=== PATIENT | male | born 1955 | race Caucasian/White ===

== ENCOUNTER 2020-03-08 17:37 | Emergency (ER) | payer OTHER, SELFPAY ==
--- NOTE | ~2020-03-08 | XR_ITS ---
EXAMINATION: XR chest 2V 03/08/2020 18:43 INDICATION: Dizziness, nausea PROCEDURE: 2 view chest COMPARISON: No prior studies for comparison. FINDINGS: The lungs are clear. The cardiomediastinal silhouette is within normal limits. There are no pleural effusions. There is no pneumothorax suspected. IMPRESSION: 1: NO ACUTE CARDIOPULMONARY DISEASE. Reviewed, dictated and finalized at location A.
[2020-03-08 18:11] VITALS: BP 153/83; PULSE 77; RESP 18; TEMP 36.4; O2SAT 97
--- NOTE | 2020-03-08 18:15 | ECG_ITS ---
Measurements Intervals [place] Rate: 65 P: 28 OR: 171 QRS: 12 QRSD: 100 T: 30 QT: 421 QTc: 440 Interpretive Statements SINUS RHYTHM INCOMPLETE RIGHT BUNDLE BRANCH BLOCK BORDERLINE ECG Electronically Signed On 03-09-2020 7:26:46 CDT by Darien Leone D.O.
[2020-03-08 18:32] LABS: Basophils Absolute Auto 0.1 K/mm3 (0.0-0.1); Basophils Percent Auto 0.6 % (0.2-1.2); Eosinophils Absolute Auto 0.2 K/mm3 (0-0.3); Eosinophils Percent Auto 2.3 % (0-4.4); Hematocrit 45.5 % (42.0-52.0); Hemoglobin 15.8 g/dL (14.0-18.0); Immature Granulocyte Absolute 0.04 K/mm3 (0.00-0.031); Immature Granulocyte Percent A 0.4 % (0-0.5); Lymphocytes Absolute Auto 1.48 K/mm3 (0.9-3.2); Lymphocytes Percent Auto 14.6 % (18.3-44.2); Mean Corpuscular HGB Conc 34.7 g/dl (32-36); Mean Corpuscular Hemoglobin 30.6 pg (26-34); Mean Corpuscular Volume 88.2 fl (80-100); Mean Platelet Volume 10.3 fl (7.4-10.4); Monocytes Absolute Auto 0.6 K/mm3 (0.1-0.6); Monocytes Percent Auto 6.1 % (2.6-8.5); Neutrophils Absolute Auto 7.7 K/mm3 (1.3-6.7); Platelet Count Result 219 k/mm3 (150-375); Red Blood Count 5.16 M/mm3 (4.6-6.20); Red Cell Distribution Width 12.4 % (11.5-14.5); White Blood Count 10.1 K/mm3 (4.5-10.0)
[2020-03-08 18:48] LABS: Alanine Aminotransferase 52 U/L (4-50); Albumin Level 4.2 g/dL (3.5-5.1); Alkaline Phosphatase 98 U/L (38-126); Anion Gap 9 mmol/L (8-16); Aspartate Amino Transferase 41 U/L (17-59); Bilirubin,Total 1.2 mg/dL (0.2-1.3); Blood Urea Nitrogen 25 mg/dL (9-20); Calcium 9.1 mg/dL (8.4-10.2); Carbon Dioxide 22 mmol/L (22-30); Chloride 108 mmol/L (98-107); Estimated Glomerular Filt Rate > 60; Glucose 133 mg/dL (75-110); Potassium 3.9 mmol/L (3.4-5.0); Sodium 139 mmol/L (137-145)
[2020-03-08 19:02] VITALS: BP 141/86; PULSE 67; RESP 14; O2SAT 98
[2020-03-08 19:14] LABS: Add Urine Microscopic? YES; Appearance Urine Clear (Clear); Bilirubin Urine 1+ (Negative); Blood Urine Negative (Negative); Color Urine Amber (Yellow); Glucose Urine UA Negative (Negative); Ketones Urine 1+ mg/dL (Negative); Leukocyte Esterase Ur Negative LEU/UL (Negative); Mucus Urine Moderate /lpf; Nitrate Urine Negative (Negative); Protein Urine 1+ mg/dL (Negative); RBC Urine 0-2 /hpf (0-2); Squamous Epithelial Cell Urine Rare /hpf (Few); WBC Urine 0-3 /hpf
[2020-03-08 19:38] LABS: Specific Grav Ur 1.038 (1.001-1.035)
[2020-03-08 19:45] VITALS: BP 135/69; PULSE 64; RESP 16; O2SAT 95
--- NOTE | 2020-03-08 20:29 | ED.DIZZY ---
HPI - Dizziness General Chief Complaint: Dizziness Stated Complaint: dizzy, nausea Time Seen by Provider: 03/08/20 18:34 Source: patient Mode of arrival: ambulatory Limitations: no limitations History of Present Illness HPI Narrative: 64-year-old with no major medical problems here with a sudden onset of dizziness. Patient states that he had a pretty active day all morning got back home started making sandwich for himself and when he turned his head he felt extremely dizzy associated with some nausea however by the time he came to the ER his symptoms have much improved. He denies any chest pain, shortness of breath. No history of any headache. He states that never had this problem before however for the last 2 years he been having mild tinnitus in his right ear. He states that he has not seen any primary doctor since his PMD retired. MD elicited complaint: vertigo Timing: sudden onset Severity: moderate Description: room spinning and off-balance Context: change in body position History of similar symptoms: No Exacerbating factors: movement/ambulation Relieving factors: remaining still Associated symptoms: nausea and vomiting Related Data Allergies Allergy/AdvReac Type Severity Reaction Status Date / Time FENOFIBRATE NANOCRYSTALLIZED Allergy Mild SWELLING Uncoded 12/07/13 20:37 MOUTH FENOFIBRATE,MICRONIZED Allergy Mild SWELLING Uncoded 12/07/13 20:37 MOUTH Review of Systems Review of Systems: All systems reviewed & are unremarkable except as noted in HPI and below Constitutional: Constitutional: Reports no additional constitutional complaints Eyes: Eyes: Reports no additional eye complaints Cardiovascular: Cardiovascular: Reports no additional cardiovascular complaints Respiratory: Respiratory: Reports no additional respiratory complaints Gastrointestinal: Gastrointestinal: Reports no additional gastrointestinal complaints Musculoskeletal: Musculoskeletal: Reports no additional musculoskeletal complaints Neurologic: Reports system reviewed and no additional complaints, except as documented PMFSH Social History Social History Gender identity (if verbalized by the patient): Male Exam Narrative: Exam Narrative: GENERAL: Well-appearing, well-nourished, and in no acute distress. HEAD: Normocephalic, atraumatic. EYES: PERRLA and EOMI. ENT: Nares clear, no rhinorrhea or epistaxis. Mucous membranes moist. NECK: Supple. CHEST: Clear to auscultation. No respiratory distress. HEART: Regular rate and rhythm. No murmur heard. Normal peripheral pulses. ABDOMEN: Soft, nontender, nondistended, normal active bowel sounds. EXTREMITIES: Normal range of motion. No edema. SKIN: Warm, dry, no rash. NEURO: No focal deficits. Alert and oriented x3. PSYCH: Normal mood and affect. Course Course Emergency Course: Patient comfortably resting on the stretcher with no complaints at this time I will order CBC chemistry and EKG. Vital Signs Vital signs: Vital Signs Temperature 36.4 C 03/08/20 18:11 Pulse Rate 77 03/08/20 18:11 Respiratory Rate 18 03/08/20 18:11 Blood Pressure 153/83 H 03/08/20 18:11 Pulse Oximetry 97 03/08/20 18:11 Temperature 36.4 C 03/08/20 18:11 Pulse Rate 64 03/08/20 19:45 Respiratory Rate 16 03/08/20 19:45 Blood Pressure 135/69 03/08/20 19:45 Pulse Oximetry 95 03/08/20 19:45 MDM - Dizziness MDM Narrative Medical decision making narrative: I informed patient about his lab work and EKG findings defer CT at this time his symptoms subsided and more consistent with BPV. Advised him to take meclizine as needed and also recommended to get established with a new primary doctor. Lab Data Result diagrams: 03/08/20 18:27 03/08/20 18:27 Labs: Lab Results 03/08/20 03/08/20 03/08/20 Range/Units 18:27 18:27 19:03 WBC 10.1 H (4.5-10.0) K/mm3 RBC 5.16 (4.6-6.20) M/mm3 Hgb
[2020-03-08 20:46] VITALS: BP 147/83; PULSE 68; RESP 18; O2SAT 99
== END 2020-03-08 20:48 | disposition home or self-care (01) ==
PROVIDERS: Emergency Provider Family Medicine
DX: H81.10 Benign paroxysmal vertigo, unspecified ear (principal)
CPT/HCPCS: 36415; 71046; 80053; 81001; 85025; 93005; 99283

== ENCOUNTER 2021-09-20 23:09 | Emergency (ER) | payer OTHER, SELFPAY ==
--- NOTE | ~2021-09-20 | XR_ITS ---
EXAMINATION: XR chest 1V portable DATE: 09/20/2021 23:25 INDICATION: Chest pain. TECHNIQUE: A single frontal view of the chest was obtained. COMPARISON: Chest 2 views 03/08/2020, CT abdomen and pelvis 12/08/2013 FINDINGS: There are mild airspace opacities in the lower lung zones. No pleural effusion or pneumotho rax. The heart size is normal. There are prominent paracardial fat pads. IMPRESSION: 1. Mild airspace opacities in the lower lung zones, consistent with atelectasis versus pneumonia. Reviewed, dictated and finalized at location A.
[2021-09-20 23:16] VITALS: BP 156/78; PULSE 57; RESP 18; TEMP 36.4; O2SAT 98
--- NOTE | 2021-09-20 23:16 | ECG_ITS ---
Measurements Intervals [place] Rate: 55 P: 38 NM: 175 QRS: 11 QRSD: 101 T: 47 QT: 429 QTc: 411 Interpretive Statements SINUS BRADYCARDIA COMPARED TO ECG 03/08/2020 18:20:49 SINUS BRADYCARDIA NOW PRESENT Electronically Signed On 09-21-2021 14:16:06 CDT by Benton Beard M.D.
[2021-09-20] MEDS: ASPIRIN 81 MG CHEWABLE TABLET 324 MG PO (23:27)
[2021-09-20 23:33] VITALS: PULSE 67; RESP 18; O2SAT 97
[2021-09-20 23:35] LABS: Basophils Percent Auto 0.5 % (0.2-1.2); Eosinophils Absolute Auto 0.4 K/mm3 (0-0.3); Hematocrit 41.9 % (42.0-52.0); Hemoglobin 14.4 g/dL (14.0-18.0); Immature Granulocyte Absolute 0.03 K/mm3 (0.00-0.031); Immature Granulocyte Percent A 0.4 % (0-0.5); Lymphocytes Absolute Auto 2.33 K/mm3 (0.9-3.2); Lymphocytes Percent Auto 28.7 % (18.3-44.2); Mean Corpuscular HGB Conc 34.4 g/dl (32-36); Mean Corpuscular Volume 90.1 fl (80-100); Mean Platelet Volume 9.9 fl (7.4-10.4); Monocytes Absolute Auto 0.7 K/mm3 (0.1-0.6); Monocytes Percent Auto 8.6 % (2.6-8.5); Neutrophils Absolute Auto 4.6 K/mm3 (1.3-6.7); Neutrophils Percent Auto 56.8 % (45.5-73.1); Platelet Count Result 188 k/mm3 (150-375); Red Blood Count 4.65 M/mm3 (4.6-6.20); Red Cell Distribution Width 12.2 % (11.5-14.5); White Blood Count 8.1 K/mm3 (4.5-10.0)
[2021-09-20 23:45] VITALS: PULSE 55; RESP 19; O2SAT 96
[2021-09-20 23:45] LABS: Alanine Aminotransferase 39 U/L (4-50); Albumin Level 3.6 g/dL (3.5-5.1); Alkaline Phosphatase 87 U/L (38-126); Anion Gap 4 mmol/L (8-16); Aspartate Amino Transferase 31 U/L (17-59); Bilirubin,Total 0.5 mg/dL (0.2-1.3); Blood Urea Nitrogen 24 mg/dL (9-20); Calcium 8.8 mg/dL (8.4-10.2); Carbon Dioxide 26 mmol/L (22-30); Chloride 107 mmol/L (98-107); Estimated CRCL calculation 87 ml/min; Estimated Glomerular Filt Rate > 60; Glucose 134 mg/dL (65-110); Lipase 154 U/L (23-300); Magnesium 1.9 mg/dL (1.6-2.3); Potassium 3.7 mmol/L (3.4-5.0); Prothrombin Time 13.1 Seconds (11.1-14.7); Sodium 137 mmol/L (137-145)
[2021-09-20] MEDS: BELLADONNA ALK/PHENOB ELIX 10 ML, MAG HYDROX/ALUMINUM HYD/SIMETH 30 ML, LIDOCAINE HCL 2... PO (23:52)
[2021-09-20 23:57] LABS: NT Pro B Type Natriuretic Pept 68 pg/mL (5-100); Troponin I < 0.012 ng/mL (0.000-0.034)
[2021-09-21] VITALS (10 sets, daily range): BP systolic 127–138; BP diastolic 72–81; PULSE 52–83; RESP 15–20; O2SAT 93–99
--- NOTE | 2021-09-21 00:02 | ED.GENADULT ---
HPI - General Adult General Chief complaint: Chest Pain Stated complaint: chest pain Time Seen by Provider: 09/20/21 23:19 History of Present Illness HPI narrative: Patient is a 65-year-old gentleman who presents the emergency department with chief complaint of chest discomfort. Patient reports he has history of gastroesophageal reflux disease takes Prilosec the patient states today he ate a large amount of solid with the stomach vinegar dressing patient states later this evening he started having reflux type symptoms and had some discomfort in his chest radiated up and into his neck. Patient states that because he was 65 he felt as though he probably should come to the emergency department to get checked out although does feel that this is most likely his reflux. The patient states symptoms have improved at this time states that he had no shortness of breath with this denies diaphoresis. The patient reports has had a stress test in the last 10 years that was negative Related Data Home Medications Medication Instructions Recorded Confirmed rosuvastatin mg 09/20/21 Allergies Allergy/AdvReac Type Severity Reaction Status Date / Time FENOFIBRATE NANOCRYSTALLIZED Allergy Mild SWELLING Uncoded 09/20/21 23:20 MOUTH FENOFIBRATE,MICRONIZED Allergy Mild SWELLING Uncoded 09/20/21 23:20 MOUTH Review of Systems Review of Systems: A 10 system review of systems was completed on the patient and is negative except for what is stated in the HPI. Nursing and ancillary documentation was reviewed. [facility] Social History Social History Gender identity (if verbalized by the patient): Male Exam Narrative: GENERAL: Well-appearing, well-nourished, and in no acute distress. HEAD: Normocephalic, atraumatic. EYES: PERRLA and EOMI. ENT: Nares clear, no rhinorrhea or epistaxis. Mucous membranes moist. NECK: Supple. CHEST: Clear to auscultation. No respiratory distress. HEART: Regular rate and rhythm. No murmur heard. Normal peripheral pulses. ABDOMEN: Soft, nontender, nondistended, normal active bowel sounds. EXTREMITIES: Normal range of motion. No edema. SKIN: Warm, dry, no rash. NEURO: No focal deficits. Alert and oriented x3. PSYCH: Normal mood and affect. Course Course Emergency Course: EKG is sinus bradycardia rate of [address] elevation or ST depression Vital Signs Vital signs: Vital Signs Temperature 36.4 C L 09/20/21 23:16 Pulse Rate 57 L 09/20/21 23:16 Respiratory Rate 18 09/20/21 23:16 Blood Pressure 156/78 H 09/20/21 23:16 Pulse Oximetry 98 09/20/21 23:16 Temperature 36.4 C L 09/20/21 23:16 Pulse Rate 63 09/21/21 02:01 Respiratory Rate 19 09/21/21 02:01 Blood Pressure 138/81 09/21/21 02:01 Pulse Oximetry 98 09/21/21 02:01 Medical Decision Making Vital Signs Vital Signs: Vital Signs Temperature 36.4 C L 09/20/21 23:16 Pulse Rate 57 L 09/20/21 23:16 Respiratory Rate 18 09/20/21 23:16 Blood Pressure 156/78 H 09/20/21 23:16 Pulse Oximetry 98 09/20/21 23:16 Temperature 36.4 C L 09/20/21 23:16 Pulse Rate 63 09/21/21 02:01 Respiratory Rate 19 09/21/21 02:01 Blood Pressure 138/81 09/21/21 02:01 Pulse Oximetry 98 09/21/21 02:01 Lab Data Result diagrams: 09/20/21 23:25 09/20/21 23:25 Labs: Lab Results 09/20/21 09/20/21 09/20/21 Range/Units 23:25 23:25 23:25 WBC 8.1 (4.5-10.0) K/mm3 RBC 4.65 (4.6-6.20) M/mm3 Hgb 14.4 (14.0-18.0) g/dL Hct 41.9 L (42.0-52.0) % MCV 90.1 (80-100) fl MCH 31.0 (26-34) pg MCHC 34.4 (32-36) g/dl RDW 12.2 (11.5-14.5) % Plt Count 188 (150-375) k/mm3 MPV 9.9 (7.4-10.4) fl Immature Gran % (Auto) 0.4 (0-0.5) % Neut % (Auto) 56.8 (45.5-73.1) % Lymph % (Auto) 28.7 (18.3-44.2) % [place] % (Auto) 8.6 H (2.6-8.5) % Eos % (Auto) 5.0 H (0-4.4) % Baso %
[2021-09-21 02:39] LABS: Troponin I < 0.012 ng/mL (0.000-0.034)
== END 2021-09-21 02:51 | disposition home or self-care (01) ==
PROVIDERS: Emergency Provider Emergency Medicine
DX: R07.89 Other chest pain (principal); K21.9 Gastro-esophageal reflux disease without esophagitis; R00.1 Bradycardia, unspecified
CPT/HCPCS: 36415; 71045; 80053; 83690; 83735; 83880; 84484; 85025; 85610; 85730; 93005; 99284; A9270

== ENCOUNTER 2021-11-08 04:56 | Emergency (ER) | payer OTHER, SELFPAY ==
--- NOTE | ~2021-11-08 | XR_ITS ---
XR shoulder RT min 2V DATE: 11/08/2021 06:31 INDICATION: Pain TECHNIQUE: 4 views COMPARISON: None FINDINGS: There is mild degenerative spurring of the acromioclavicular joint. No fracture or disloca tion, periosteal reaction or bone destruction of the right shoulder. No abnormal right shoulder calc ification. IMPRESSION: Mild degenerative change of right acromioclavicular joint Reviewed, dictated and finalized at location A.
[2021-11-08 05:05] VITALS: BP 161/74; PULSE 51; RESP 14; TEMP 36.5; O2SAT 97
[2021-11-08 05:12] VITALS: BP 161/74; PULSE 51; RESP 14; TEMP 36.5; O2SAT 97
[2021-11-08 06:51] VITALS: BP 154/72; PULSE 46; RESP 13; O2SAT 96
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
[2021-11-08] MEDS: methylPREDNISolone 4 MG TABLET PO (07:43)
[2021-11-08 07:45] VITALS: BP 142/75; PULSE 62; RESP 17; O2SAT 99
== END 2021-11-08 07:47 | disposition home or self-care (01) ==
PROVIDERS: Emergency Provider Emergency Medicine
DX: M25.511 Pain in right shoulder (principal); M54.10 Radiculopathy, site unspecified
CPT/HCPCS: 73030; 99283; A9270

== ENCOUNTER 2021-12-08 01:33 | Emergency (ER) | payer OTHER, SELFPAY ==
[2021-12-08 01:34] VITALS: BP 152/95; PULSE 60; RESP 16; TEMP 36.2; O2SAT 94
--- NOTE | 2021-12-08 02:54 | ED.NECK ---
HPI - Neck Pain/Injury General Chief Complaint: Neck Pain/Injury Stated Complaint: neck pain x 1 month Time Seen by Provider: 12/08/21 02:22 Source: patient History of Present Illness HPI Narrative: Patient presents with neck/back pain. Ports he had symptoms for approximately 1 month he saw his primary care doctor started on hydrocodone as well as Flexeril and had a trial of Medrol Dosepak. Reports his symptoms have persisted and have been worse over the past couple days he came to the ER for some additional relief. His pain is achy, constant, radiates down his arm worse with moving his neck and back. Reports it feels like a muscle spasm. Denies any trauma to the area denies any focal numbness or weakness. Related Data Home Medications Medication Instructions Recorded Confirmed rosuvastatin 5 mg tablet mg 09/20/21 cyclobenzaprine 10 mg tablet mg 11/08/21 Allergies Allergy/AdvReac Type Severity Reaction Status Date / Time FENOFIBRATE NANOCRYSTALLIZED Allergy Mild SWELLING Uncoded 11/08/21 05:12 MOUTH FENOFIBRATE,MICRONIZED Allergy Mild SWELLING Uncoded 11/08/21 05:12 MOUTH Review of Systems Review of Systems: CONSTITUTIONAL: Denies fever, chills, or sweats. EYES: Denies visual changes, redness, or discharge. ENT: Denies rhinorrhea, congestion, sore throat, or otalgia. CARDIOVASCULAR: Denies chest pain, palpitations, or edema. RESPIRATORY: Denies cough or dyspnea. GASTROINTESTINAL: Denies abdominal pain, nausea, vomiting, or diarrhea. GENITOURINARY: Denies dysuria or hematuria. SKIN: Denies rash or itching. MUSCULOSKELETAL: Denies back pain, joint pain, or myalgia. NEUROLOGIC: Denies headache, numbness, dizziness, or weakness. PSYCHIATRIC: Denies anxiety or depression. All systems reviewed & are unremarkable except as noted in HPI and below PMFSH Social History Social History Gender identity (if verbalized by the patient): Male Exam Narrative: GENERAL: Well-appearing, well-nourished, and in no acute distress. HEAD: Normocephalic, atraumatic. EYES: PERRLA and EOMI. ENT: Nares clear, no rhinorrhea or epistaxis. Mucous membranes moist. NECK: Supple. No masses. Mild tenderness palpation on the right paraspinal C and T-spine from C5-t3 EXTREMITIES: Normal range of motion. No edema. SKIN: Warm, dry, no rash. NEURO: No focal deficits. Alert and oriented x3. PSYCH: Normal mood and affect. Course Vital Signs Vital signs: Vital Signs Temperature 36.2 C L 12/08/21 01:34 Pulse Rate 60 12/08/21 01:34 Respiratory Rate 16 12/08/21 01:34 Blood Pressure 152/95 H 12/08/21 01:34 Pulse Oximetry 94 12/08/21 01:34 Oxygen Delivery Room Air 12/08/21 01:34 Temperature 36.2 C L 12/08/21 01:34 Pulse Rate 75 12/08/21 03:27 Respiratory Rate 18 12/08/21 03:27 Blood Pressure 156/82 H 12/08/21 03:27 Pulse Oximetry 98 12/08/21 03:27 Oxygen Delivery Room Air 12/08/21 01:34 MDM - Neck Pain/Injury MDM Narrative Medical decision making narrative: H&P as above, vss, pt looks clinically well, exam without focal neurological deficits or focal bony tenderness, additional labs/img considered, symptomatic relief available as needed, on reevaluation pt continues to looks clinically well. Suspect muscle spasm, dns cord compromise, fracture, major neurovascular compromise. plan to tx/monitor as op w/ pcm f/u findings/plan discussed with pt, pt agree/comfortable with plan, return precautions given Discharge Plan Discharge Clinical Impression: Muscle spasm Patient Disposition: Home, Self-Care Condition: Improved Instructions: Antibiotic Form, Cervical Sprain (ED) Additional Instructions: Please return if your symptoms worsen or fail to improve. If you develop a fever, can not eat/drink anything or if you have any other concerns. Prescriptions: New tizanidine [Zanaflex] 4 mg tablet 4 mg PO Q8H PRN (Reason: muscle
[2021-12-08] MEDS: KETOROLAC 30 MG/ML VIAL (*BKC) IM (03:02)
[2021-12-08 03:27] VITALS: BP 156/82; PULSE 75; RESP 18; O2SAT 98
== END 2021-12-08 03:34 | disposition home or self-care (01) ==
PROVIDERS: Emergency Provider Emergency Medicine; PCP Student in an Organized Health Care Education/Training Program
DX: M62.830 Muscle spasm of back (principal)
CPT/HCPCS: 96372; 99283; J1885

== ENCOUNTER 2023-05-05 21:27 | Inpatient (IN) | payer OTHER, SELFPAY ==
--- NOTE | ~2023-05-05 | US_ITS ---
EXAMINATION: US abdomen limited DATE: 05/08/2023 09:31 INDICATION: elevated bili TECHNIQUE: Multiple grayscale and Doppler ultrasound images of limited portions of the abdomen were o btained. COMPARISON: CT abdomen pelvis 05/05/2023. FINDINGS: The pancreas was poorly visualized. The liver is normal size with increased echogenicity an d normal echotexture. No surface nodularity. Normal hepatopetal flow in the main portal vein. Status post cholecystectomy The common bile duct measures 6 mm. IMPRESSION: Echogenic liver, most commonly due to steatosis but also can be seen with hepatitis and fibrosis. Reviewed, dictated and finalized at location K. IMPRESSION: Echogenic liver, most commonly due to steatosis but also can be seen with hepat itis and fibrosis.
--- NOTE | ~2023-05-05 | CT_ITS ---
EXAMINATION: CT abdomen pelvis wo con DATE: 05/09/2023 09:16 INDICATION: Left lower quadrant abdominal tenderness. Bowel perforation. TECHNIQUE: Computed tomography (CT) of the abdomen and pelvis was performed without intravenous contr ast. Automated exposure control and iterative reconstruction technique were employed. The dose-length product was 1324.57 mGy-cm. COMPARISON: CT abdomen and pelvis 05/05/2023 FINDINGS: The visualized portions of the lung bases demonstrate mild atelectasis. There are trace ple ural effusions. The heart size is normal. No pericardial effusion. There are coronary artery calcific ations. The liver and spleen are normal. There are changes of cholecystectomy. The pancreas, adrenal glands, and kidneys are normal. There is no urolithiasis. The prostate is mildly enlarged. There are scattered diverticula in the colon. There is fat stranding around the sigmoid colon. There is a 2.3 x 1.2 x 1.2 cm collection of fluid and gas adjacent to the sigmoid colon. The appendix is normal. Ther e are no dilated loops of bowel. There is calcified atherosclerosis of the aorta and many of the othe r arteries. There are no pathologically enlarged lymph nodes. There is pelvic ascites measuring 1.7 x 2.8 x 5.1 cm. There is mild thoracic and lumbar spondylosis. IMPRESSION: 1. Acute sigmoid diverticulitis with microperforation and worsened small volume of pelvic ascites. Reviewed, dictated and finalized at location E.
--- NOTE | ~2023-05-05 | CT_ITS ---
EXAMINATION: CT abdomen pelvis w con INDICATION: Left lower quadrant pain TECHNIQUE: Computed tomographic images of the abdomen and pelvis were obtained after the administrati on of 100 cc of Omnipaque 350 intravenous contrast. The dose-length product (DLP) was 1489.46 mGy-cm. Automated exposure control and iterative reconstruction technique were employed. COMPARISON: 12/08/2013 FINDINGS: Minimal dependent atelectasis is present in the lung bases. The heart size is normal. Calci fied coronary artery atherosclerosis is noted. The liver is diffusely low in attenuation when compare d with the spleen, consistent with hepatic steatosis. The spleen, pancreas, and adrenal glands are no rmal. Changes of cholecystectomy are noted. There is calcified atherosclerosis of the aorta and many of the other arteries. No pathologically enlarged abdominal or pelvic lymph nodes are identified. The re is colonic diverticulosis with wall thickening and inflammation of the sigmoid colon. There is a s mall area of adjacent extraluminal gas. There are no dilated loops of bowel. There is moderate lumbar spondylosis. IMPRESSION: 1. Acute sigmoid diverticulitis with focal perforation. Reviewed, dictated and finalized at location F.
[2023-05-05 21:28] VITALS: BP 138/102; PULSE 93; RESP 20; TEMP 36.7; O2SAT 96
[2023-05-05 22:18] LABS: Basophils Absolute Auto 0.1 K/mm3 (0.0-0.1); Basophils Percent Auto 0.3 % (0.2-1.2); Eosinophils Percent Auto 0.1 % (0-4.4); Hematocrit 45.3 % (42.0-52.0); Hemoglobin 15.1 g/dL (14.0-18.0); Immature Granulocyte Absolute 0.15 K/mm3 (0.00-0.031); Immature Granulocyte Percent A 0.7 % (0-0.5); Lymphocytes Absolute Auto 1.22 K/mm3 (0.9-3.2); Mean Corpuscular HGB Conc 33.3 g/dl (32-36); Mean Corpuscular Hemoglobin 30.8 pg (26-34); Mean Corpuscular Volume 92.4 fl (80-100); Monocytes Absolute Auto 1.2 K/mm3 (0.1-0.6); Monocytes Percent Auto 5.6 % (2.6-8.5); Neutrophils Absolute Auto 17.8 K/mm3 (1.3-6.7); Neutrophils Percent Auto 87.3 % (45.5-73.1); Platelet Count Result 257 k/mm3 (150-375); Red Cell Distribution Width 12.3 % (11.5-14.5); White Blood Count 20.4 K/mm3 (4.5-10.0)
[2023-05-05 22:28] LABS: Alanine Aminotransferase 56 U/L (6-50); Albumin Level 3.9 g/dL (3.5-5.1); Alkaline Phosphatase 83 U/L (38-126); Anion Gap 6 mmol/L (8-16); Aspartate Amino Transferase 33 U/L (17-59); Bilirubin,Total 1.7 mg/dL (0.2-1.3); Blood Urea Nitrogen 25 mg/dL (9-20); Carbon Dioxide 31 mmol/L (22-30); Chloride 97 mmol/L (98-107); Estimated CRCL calculation 93 ml/min; Estimated Glomerular Filt Rate > 60; Glucose 143 mg/dL (65-110); Lipase 45 U/L (23-300); Potassium 3.7 mmol/L (3.4-5.0); Sodium 134 mmol/L (137-145)
[2023-05-05 22:29] LABS: Appearance Urine Clear (Clear); Bacteria Urine None Seen /hpf; Bilirubin Urine Negative (Negative); Blood Urine Negative (Negative); Color Urine Dark Yellow (Yellow); Glucose Urine UA Negative (Negative); Ketones Urine Negative (Negative); Leukocyte Esterase Ur Trace LEU/UL (Negative); Nitrate Urine Negative (Negative); Non Pathogenic Casts 0-2; Protein Urine Negative (Negative); RBC Urine 0-2 /hpf (0-2); Specific Grav Ur 1.024 (1.001-1.035); Squamous Epithelial Cell Urine None seen /hpf (Few); WBC Urine 0-5 /hpf
--- NOTE | 2023-05-05 22:36 | ED.ABDPAIN ---
HPI - Abdominal Pain General Chief Complaint: Abdominal Pain <FER Pollock Last Filed: 05/06/23 01:36> Stated Complaint: abd pain <FER Pollock Last Filed: 05/06/23 01:36> Time Seen by Provider: 05/05/23 22:25 <FER Pollock Last Filed: 05/06/23 01:36> History of Present Illness HPI narrative: 67-year-old male reports for evaluation for left lower quadrant abdominal pain that started approximately 1 day ago. Patient states he is not in pain if he lays still, however with any movement of his legs, torso or walking he has significant pain in the left lower quadrant. States today he did not eat breakfast or lunch, but did have broth for dinner. Denies chest pain, shortness of breath, fever, nausea, vomiting, diarrhea, testicular pain or edema, dysuria, hematuria, urinary frequency or urgency, flank pain. Denies history of diverticulitis. Last bowel movement was today and normal. <FER Pollock Last Filed: 05/06/23 01:36> Related Data Home Medications: Home Medications Medication Instructions Recorded Confirmed omeprazole magnesium 20 mg 20 mg PO HS 05/06/23 05/06/23 tablet,delayed release (Prilosec OTC) <FER Pollock Last Filed: 05/06/23 01:36> Allergies/Adverse Reactions: Allergies Allergy/AdvReac Type Severity Reaction Status Date / Time FENOFIBRATE NANOCRYSTALLIZED Allergy Mild SWELLING Uncoded 05/05/23 21:35 MOUTH FENOFIBRATE,MICRONIZED Allergy Mild SWELLING Uncoded 05/05/23 21:35 MOUTH <FER Pollock Last Filed: 05/06/23 01:36> Review of Systems Review of Systems: CONSTITUTIONAL: Denies fever, chills EYES: Denies visual changes, redness, or discharge. ENT: Denies rhinorrhea, congestion, sore throat, or otalgia. CARDIOVASCULAR: Denies chest pain, palpitations, or edema. RESPIRATORY: Denies cough or dyspnea. GASTROINTESTINAL: See HPI GENITOURINARY: Denies dysuria or hematuria. SKIN: Denies rash or itching. MUSCULOSKELETAL: Denies back pain, joint pain, or myalgia. NEUROLOGIC: Denies headache, numbness, dizziness, or weakness. PSYCHIATRIC: Denies anxiety or depression. <Torie Blanco PA-C - Last Filed: 05/06/23 01:36> [facility] Surgical History Surgical History: Surgical History (Updated 05/06/23 @ 13:38 by Yolanda Kinsey PA-C) History of arthroplasty of left knee Hx laparoscopic cholecystectomy Hx of tonsillectomy (Unknown) <Torie Blanco PA-C - Last Filed: 05/06/23 01:36> Family History Family History: Family History (Updated 05/06/23 @ 13:39 by Yolanda Kinsey PA-C) Father Skin cancer Hypertension Mother Breast cancer Diabetes mellitus Heart disease <Torie Blanco PA-C - Last Filed: 05/06/23 01:36> Social History Social History: Social History (Updated 05/06/23 @ 13:39 by Yolanda Kinsey PA-C) Social History: patient lives in a house with his . He has 3 kids and 4 grandkids. He admits to drinking occasionally. Denies history of tobacco use or drug use. Smoking status: Never smoker Alcohol intake: current Drinks per week: 1 Substance use: never Lack of Transportation: No Lack of Food: Never True Current Housing: I Have Housing Concerned About Future Housing: No Difficulty Paying Gas/Electric Bills: No Difficulty Paying for Meds: No Currently Unemployed: No Education: Master's Degree or Higher Difficulty w/ Childcare or Family Care: No Gender identity (if verbalized by the patient): Male Spiritual care concerns: No <Torie Blanco PA-C - Last Filed: 05/06/23 01:36> Exam Narrative: GENERAL: Well-appearing, in no acute distress. HEAD: Normocephalic EYES: PERRLA ENT: Nares clear. Mucous membranes moist. Oropharynx without tonsillar hypertrophy exudate or other lesions. NECK: Supple. CHEST: No respiratory distress. Clear to auscultation, no adventitious breath sounds.
[2023-05-05 22:41] LABS: Add Urine Microscopic? YES
[2023-05-05] MEDS: SODIUM CHLORIDE 0.9% IV 1,000 ML 999 ML IV CONT (22:41)
[2023-05-05] MEDS: MORPHINE SULFATE (*CRX) 4 MG/ML INJ IV PUSH (22:41)
[2023-05-05 22:47] VITALS: BP 130/71
[2023-05-05 23:01] VITALS: BP 133/75
[2023-05-05 23:16] VITALS: BP 129/73
[2023-05-05 23:31] VITALS: BP 128/72; PULSE 86; RESP 16; O2SAT 100
[2023-05-06] VITALS (10 sets, daily range): BP systolic 107–136; BP diastolic 58–71; PULSE 77–93; RESP 14–18; TEMP 36.6–37.7; O2SAT 95–99; BMI 33.7
[2023-05-06] MEDS: PIPERACILLN/TAZ 3.375GM/NS50ML 3.375 GM/50 ML BAG IVPB ×4 (00:29→17:43)
[2023-05-06] MEDS: HYDROmorphone HCL INJ (*CRX) 1 MG/ML SYR 0.5 MG IV PUSH ×2 (00:30→05:42)
[2023-05-06] MEDS: SODIUM CHLORIDE 0.9% IV 1,000 ML 125 ML IV CONT ×2 (02:18→11:13)
--- NOTE | 2023-05-06 03:15 | ADMGEN ---
This patient, Mannie Lancaster, was admitted to 2 Medical Room 251-. Patient/family oriented to hospital policies and general routines including ID bracelet, bed and alarms, visiting hours, pain management, procedures, bathroom and other care routines, personal items, smoking policy, room service/diet, and visiting hours. Information on how to activate the Rapid Response Team has been discussed. Patient/Family are encouraged to report perceived risks to care and to ask questions if they do not understand what they are told or what they should do.
[2023-05-06 09:06] LABS: Basophils Percent Auto 0.2 % (0.2-1.2); Eosinophils Absolute Auto 0.1 K/mm3 (0-0.3); Eosinophils Percent Auto 0.3 % (0-4.4); Hematocrit 40.7 % (42.0-52.0); Hemoglobin 13.4 g/dL (14.0-18.0); Immature Granulocyte Percent A 0.6 % (0-0.5); Lymphocytes Absolute Auto 0.94 K/mm3 (0.9-3.2); Lymphocytes Percent Auto 5.8 % (18.3-44.2); Mean Corpuscular HGB Conc 32.9 g/dl (32-36); Mean Corpuscular Hemoglobin 30.9 pg (26-34); Mean Corpuscular Volume 93.8 fl (80-100); Mean Platelet Volume 9.9 fl (7.4-10.4); Monocytes Absolute Auto 1.1 K/mm3 (0.1-0.6); Monocytes Percent Auto 6.8 % (2.6-8.5); Neutrophils Absolute Auto 14.1 K/mm3 (1.3-6.7); Neutrophils Percent Auto 86.3 % (45.5-73.1); Platelet Count Result 198 k/mm3 (150-375); Red Blood Count 4.34 M/mm3 (4.6-6.20); Red Cell Distribution Width 12.5 % (11.5-14.5); White Blood Count 16.3 K/mm3 (4.5-10.0)
[2023-05-06 09:17] LABS: Alanine Aminotransferase 67 U/L (6-50); Albumin Level 3.2 g/dL (3.5-5.1); Alkaline Phosphatase 92 U/L (38-126); Anion Gap 1 mmol/L (8-16); Aspartate Amino Transferase 34 U/L (17-59); Bilirubin,Total 2.4 mg/dL (0.2-1.3); Blood Urea Nitrogen 19 mg/dL (9-20); Calcium 8.3 mg/dL (8.4-10.2); Carbon Dioxide 30 mmol/L (22-30); Chloride 102 mmol/L (98-107); Estimated CRCL calculation 92 ml/min; Estimated Glomerular Filt Rate > 60; Glucose 114 mg/dL (65-110); Potassium 4.1 mmol/L (3.4-5.0); Sodium 133 mmol/L (137-145)
[2023-05-06] MEDS: PANTOPRAZOLE SODIUM IV 40 MG VIAL IV PUSH (10:25)
--- NOTE | 2023-05-06 13:34 | PM.IMHP ---
H&P: HPI History of Present Illness Date/Time: 05/06/23 13:34 Chief Complaint: left lower quadrant pain Narrative: This is a 67-year-old male with insignificant past medical history that presented to the ED on 05/06/2023 due to acute left lower quadrant abdominal pain. the pain started in the middle the night and patient proceeded to go to work and then came to the ED after work. He denies any history of diverticular disease and recently had colonoscopy within the past year. He denies any nausea, vomiting, diarrhea, hematochezia or melena. Admits to subjective fever prior to presentation to the ED. 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 Labs revealed white blood cell count of 20.4. CT abdomen pelvis revealing acute sigmoid diverticulitis with focal perforation. General surgery consulted. Kelly soliman. ON LICENSE OF [facility] Surgical History Surgical History (Updated 05/06/23 @ 13:38 by Yolanda Kinsey PA-C) History of arthroplasty of left knee Hx laparoscopic cholecystectomy Hx of tonsillectomy (Unknown) Family History Family History (Updated 05/06/23 @ 13:39 by Yolanda Kinsey PA-C) Father Skin cancer Hypertension Mother Breast cancer Diabetes mellitus Heart disease Social History Social History (Updated 05/06/23 @ 13:39 by Yolanda Kinsey PA-C) Social History: patient lives in a house with his . He has 3 kids and 4 grandkids. He admits to drinking occasionally. Denies history of tobacco use or drug use. Smoking status: Never smoker Alcohol intake: current Drinks per week: 1 Substance use: never Lack of Transportation: No Lack of Food: Never True Current Housing: I Have Housing Concerned About Future Housing: No Difficulty Paying Gas/Electric Bills: No Difficulty Paying for Meds: No Currently Unemployed: No Education: Master's Degree or Higher Difficulty w/ Childcare or Family Care: No Gender identity (if verbalized by the patient): Male Spiritual care concerns: No Meds Home Medications and Allergies Home Medications Medication Instructions Recorded Confirmed Type omeprazole magnesium 20 mg 20 mg PO HS 05/06/23 05/06/23 History tablet,delayed release (Prilosec OTC) Allergies Allergy/AdvReac Type Severity Reaction Status Date / Time FENOFIBRATE NANOCRYSTALLIZED Allergy Mild SWELLING Uncoded 05/05/23 21:35 MOUTH FENOFIBRATE,MICRONIZED Allergy Mild SWELLING Uncoded 05/05/23 21:35 MOUTH Vital Signs Vital Signs - 24 hr 05/05/23 21:28 05/05/23 22:47 05/05/23 23:01 Temperature 98.1 F Pulse Rate 93 Respiratory Rate 20 Blood Pressure 138/102 H 130/71 133/75 Pulse Oximetry 96 Oxygen Delivery Room Air 05/05/23 23:16 05/05/23 23:31 05/06/23 01:31 Temperature Pulse Rate 86 88 Respiratory Rate 16 16 Blood Pressure 129/73 128/72 118/66 Pulse Oximetry 100 98 Oxygen Delivery 05/06/23 02:20 05/06/23 02:31 05/06/23 03:01 Temperature Pulse Rate 93 Respiratory Rate 18 Blood Pressure 113/71 115/64 107/58 L Pulse Oximetry Oxygen Delivery 05/06/23 03:16 05/06/23 03:23 05/06/23 03:25 Temperature 98 F 98 F Pulse Rate 77 87 87 Respiratory Rate 18 18 Blood Pressure 130/61 130/61 Pulse Oximetry 98 99 99 Oxygen Delivery 05/06/23 08:00 Temperature Pulse Rate Respiratory Rate Blood Pressure Pulse Oximetry 99 Oxygen Delivery Room Air Exam Narrative: GENERAL: Comfortable, no acute distress HENMT: moist mucous membranes EYES: EOM intact b/l NECK: no lymphadenopathy RESPIRATORY: clear to auscultation CARDIO: RRR GI: soft, Left lower quadrant tenderness, bowel sounds present SKIN: no rashes EXTREMITIES: no edema, redness or tenderness H&P: Results Labs Labs: Short CBC 05/05/23 05/06/23 Range/Units 22:05 08:27 WBC 20.4 H 16.3 H (4.5-10.0) K/mm3 Hgb 15.1 13.4 L (14.0-18.0) g/dL Hct 45.3 40.7 L (42.0-52.0) % Plt Count 257
--- NOTE | 2023-05-06 14:19 | PM.CNGS ---
Assessment and Plan Assessment and plan (1) Diverticulitis of colon with perforation: Code(s): K57.20 - Diverticulitis of large intestine with perforation and abscess without bleeding Status: Acute Assessment and Plan: Explained the pathology involved with acute diverticulitis. Explained that the acute infection usually resolves with antibiotics and bowel rest. He does feel better today and is likely to resolve with nonsurgical treatment. I did explain that should his diverticulitis get worse or fail to resolve, surgical treatment may be necessary. I explained that in the case of acute infection, surgical resection of the sigmoid colon often results in a temporary colostomy. I answered all his questions. Agree with Zosyn antibiotics. I will follow along with you. Thank you for asking me to see this patient in consultation. History of Present Illness Consult details Consult date: 05/06/23 Reason for consult: abdominal pain Requesting physician: Torie Blanco PA-C Narrative: Patient is a 67-year-old man who was awakened about 3:00 a.m. night before last with bilateral lower quadrant abdominal pain. Initially, the pain was only when he tried to get up or move. However it got worse and was there constantly being worse with movement or riding in a car. He had no nausea vomiting constipation or diarrhea. He has had this pain actually several times but none as severe as he had on 05/05/2023. He tells me that for the last 5 years, he has had episodes of bilateral lower quadrant abdominal pain but it usually went away in 1-2 days and was not this severe. He did not see a physician or have imaging for any of these episodes. The most recent episode, prior to the 1 leading to admission, was 2 weeks ago. He had a colonoscopy by Dr. Gaona 7 months ago and aside from a benign polyp was told he had diverticulosis. This was done at [facility]. His only previous abdominal surgery was a laparoscopic cholecystectomy done 27 years ago. There is no family history of colon surgery or inflammatory bowel disease. He does feel better than when he came in last night. He has no pain when lying still but still has pain when he gets. Review of Systems Review of Systems: All systems reviewed & are unremarkable except as noted in HPI and below (HPI and those items noted below) Constitutional: Constitutional: Denies chills and Denies fever(s) Cardiovascular: Cardiovascular: Denies chest pain, Denies diaphoresis, Denies dyspnea and Denies paroxysmal nocturnal dyspnea Respiratory: Respiratory: Denies chest congestion, Denies cough and Denies dyspnea Integumentary/Breasts: Skin/Breast: Denies lesions and Denies rash PMFSH Surgical History Surgical History (Updated 05/06/23 @ 13:38 by Yolanda Kinsey PA-C) History of arthroplasty of left knee Hx laparoscopic cholecystectomy Hx of tonsillectomy (Unknown) Family History Family History (Updated 05/06/23 @ 13:39 by Yolanda Kinsey PA-C) Father Skin cancer Hypertension Mother Breast cancer Diabetes mellitus Heart disease Social History Social History (Updated 05/06/23 @ 13:39 by Yolanda Kinsey PA-C) Social History: patient lives in a house with his . He has 3 kids and 4 grandkids. He admits to drinking occasionally. Denies history of tobacco use or drug use. Smoking status: Never smoker Alcohol intake: current Drinks per week: 1 Substance use: never Lack of Transportation: No Lack of Food: Never True Current Housing: I Have Housing Concerned About Future Housing: No Difficulty Paying Gas/Electric Bills: No Difficulty Paying for Meds: No Currently Unemployed: No Education: Master's Degree or Higher Difficulty w/ Childcare or Family Care: No Gender identity (if verbalized by the patient): Male Spiritual care concerns: No Meds Home Medications and Allergies Home Medications Medication Instructions R
[2023-05-06] MEDS: IBUPROFEN IV 800 MG/200 ML 800 MG/200 ML BAG 400 MG IVPB ×2 (14:32→22:18)
[2023-05-06] MEDS: ENOXAPARIN 40 MG/0.4 ML SYRINGE SUB-Q (15:15)
[2023-05-07] MEDS: PIPERACILLN/TAZ 3.375GM/NS50ML 3.375 GM/50 ML BAG IVPB ×5 (01:10→23:56)
[2023-05-07] MEDS: SODIUM CHLORIDE 0.9% IV 1,000 ML 125 ML IV CONT ×2 (01:10→13:11)
[2023-05-07 04:44] VITALS: BP 150/75; PULSE 84; RESP 16; TEMP 36.8; O2SAT 99
[2023-05-07 06:39] LABS: Basophils Percent Auto 0.3 % (0.2-1.2); Eosinophils Absolute Auto 0.2 K/mm3 (0-0.3); Eosinophils Percent Auto 1.5 % (0-4.4); Hematocrit 45.4 % (42.0-52.0); Hemoglobin 14.8 g/dL (14.0-18.0); Immature Granulocyte Percent A 0.7 % (0-0.5); Lymphocytes Absolute Auto 0.81 K/mm3 (0.9-3.2); Lymphocytes Percent Auto 5.4 % (18.3-44.2); Mean Corpuscular HGB Conc 32.6 g/dl (32-36); Mean Corpuscular Hemoglobin 30.7 pg (26-34); Mean Corpuscular Volume 94.2 fl (80-100); Mean Platelet Volume 9.9 fl (7.4-10.4); Neutrophils Absolute Auto 12.7 K/mm3 (1.3-6.7); Neutrophils Percent Auto 85.1 % (45.5-73.1); Platelet Count Result 218 k/mm3 (150-375); Red Blood Count 4.82 M/mm3 (4.6-6.20); Red Cell Distribution Width 12.2 % (11.5-14.5)
[2023-05-07 06:48] LABS: Alanine Aminotransferase 53 U/L (6-50); Albumin Level 3.5 g/dL (3.5-5.1); Alkaline Phosphatase 115 U/L (38-126); Anion Gap 9 mmol/L (8-16); Aspartate Amino Transferase 25 U/L (17-59); Bilirubin,Total 2.6 mg/dL (0.2-1.3); Blood Urea Nitrogen 14 mg/dL (9-20); Calcium 9.1 mg/dL (8.4-10.2); Carbon Dioxide 24 mmol/L (22-30); Chloride 103 mmol/L (98-107); Estimated CRCL calculation 105 ml/min; Estimated Glomerular Filt Rate > 60; Glucose 90 mg/dL (65-110); Potassium 3.9 mmol/L (3.4-5.0); Sodium 136 mmol/L (137-145)
[2023-05-07] MEDS: IBUPROFEN IV 800 MG/200 ML 800 MG/200 ML BAG 400 MG IVPB (08:44)
[2023-05-07] MEDS: PANTOPRAZOLE 40 MG TABLET PO (08:44)
[2023-05-07] MEDS: ENOXAPARIN 40 MG/0.4 ML SYRINGE SUB-Q (08:45)
[2023-05-07 08:53] VITALS: TEMP 36.7
--- NOTE | 2023-05-07 13:29 | PM.IMPN ---
Progress Note: A&P Assessment and Plan (1) Diverticulitis: Code(s): K57.92 - Diverticulitis of intestine, part unspecified, without perforation or abscess without bleeding Status: Deleted Assessment and Plan: CT abdomen pelvis showed sigmoid diverticulitis with perforation. IV Zosyn initiated. IV fluids continued General surgery consulted. Advanced diet as tolerated Analgesics p.r.n. Blood cultures x2 no growth to date (2) Bowel perforation: Code(s): K63.1 - Perforation of intestine (nontraumatic) Status: Deleted Assessment and Plan: general surgery consulted Subjective Date/time seen: 05/07/23 13:29 Interval history: Patient still having pain with movement but while at rest he is pain free. He is wanting to attempt advancing his diet. Discussed with patient that we will start with clear liquid and advanced if he does well with it. He states his bowels are moving but denies any diarrhea or melena. White count continues to trend down Exam Narrative: GENERAL: Comfortable, no acute distress HENMT: moist mucous membranes EYES: EOM intact b/l NECK: no lymphadenopathy RESPIRATORY: clear to auscultation CARDIO: RRR GI: soft, Left lower quadrant tenderness, bowel sounds present SKIN: no rashes EXTREMITIES: no edema, redness or tenderness Objective Data Vital Signs Vital Signs: Vital Signs - 24 hr 05/06/23 13:40 05/06/23 20:11 05/06/23 20:55 Temperature 99.8 F H 98.6 F Pulse Rate 86 77 Respiratory Rate 16 14 Blood Pressure 136/70 136/70 Pulse Oximetry 95 99 Oxygen Delivery Room Air 05/07/23 04:44 05/07/23 08:53 05/07/23 08:45 Temperature 98.3 F 98.1 F Pulse Rate 84 Respiratory Rate 16 Blood Pressure 150/75 H Pulse Oximetry 99 Oxygen Delivery Room Air Intake/Output Intake/Output: Intake & Output 05/04/23 05/05/23 05/06/23 05/07/23 23:59 23:59 23:59 23:59 Intake Total 1000 2600 1300 Output Total 700 Balance 1000 1900 1300 Meds/Results Medications: Active Medications Generic Name Dose Route Start Last Admin Trade Name Freq PRN Reason Stop Dose Admin Acetaminophen 500 mg 05/06/23 15:17 Acetaminophen 500 Mg Tablet PO Q6H PRN Mild Pain (1-3) or Fever Enoxaparin Sodium 40 mg 05/07/23 09:00 05/07/23 08:45 Enoxaparin 40 Mg/0.4 Ml Syringe SUB-Q 40 mg DAILY CATINA Administration Piperacillin/Tazobactam/Dextrose 3.375 gm in 50 mls @ 100 mls/hr 05/06/23 06:00 05/07/23 13:11 Zosyn 3.375 Gm/Ns 50 Ml IVPB 100 mls/hr Q6HR CATINA Administration Sodium Chloride 1,000 mls @ 100 mls/hr 05/06/23 01:35 05/07/23 13:11 Normal Saline Iv IV CONT 125 mls/hr .Q10H CATINA Administration Ibuprofen 800 mg in 200 mls @ 400 mls/hr 05/06/23 15:17 05/07/23 09:14 Caldolor 800 Mg/200 Ml IVPB Infused Q6H PRN Infusion Pain Rated 4-6 Morphine Sulfate 4 mg 05/06/23 15:17 Morphine Sulfate (*Crx) 4 Mg/Ml Inj IV PUSH Q2H PRN Pain Rated 7-10 Naloxone HCl 0.1 mg 05/06/23 15:17 Naloxone Hcl 0.4 Mg/Ml Vial IV PUSH Q2M PRN Opiate Reversal Ondansetron HCl 4 mg 05/06/23 01:33 Ondansetron Inj 4 Mg/2 Ml Vial IV PUSH Q4H PRN Nausea Pantoprazole Sodium 40 mg 05/07/23 09:00 05/07/23 08:44 Pantoprazole 40 Mg Tablet PO 40 mg QAM CATINA Administration Radiology Results: ITS Impressions Abdomen/Pelvis CT 05/06/23 00:01 IMPRESSION: 1. Acute sigmoid diverticulitis with focal perforation. Labs Labs: Laboratory Results - last 24 hr 05/07/23 06:13 WBC 15.0 H RBC 4.82 Hgb 14.8 Hct 45.4 MCV 94.2 MCH 30.7 MCHC 32.6 RDW 12.2 Plt Count 218 MPV 9.9 Immature Gran % (Auto) 0.7 H Neut % (Auto) 85.1 H Lymph % (Auto) 5.4 L Charl[place] % (Auto) 7.0 Eos % (Auto) 1.5 Baso % (Auto) 0.3 Lymph # (Auto) 0.81 L Charl[place] # (Auto) 1.0 H Eos # (Auto) 0.2 Baso # (Auto) 0.0 Abs Immat Gran (auto) 0.10
[2023-05-07 14:00] VITALS: BP 145/60; PULSE 78; RESP 16; TEMP 36.7; O2SAT 100
--- NOTE | 2023-05-07 14:01 | PM.PNGS ---
Progress Note: A&P Assessment and Plan (1) Diverticulitis of colon with perforation: Code(s): K57.20 - Diverticulitis of large intestine with perforation and abscess without bleeding Status: Acute Assessment and Plan: Responding nicely to IV antibiotics. Pain and tenderness much improved from yesterday. Will start clear liquids. Continue to monitor labs, vital signs, and abdominal exam. Subjective Subjective Date/Time Seen: 05/07/23 14:01 Patient reports: feels better, pain is less, voiding w/o difficulty, bowel movement and afebrile Review of Systems Review of Systems: All systems reviewed & are unremarkable except as noted in HPI and below (HPI and those items noted below) Constitutional: Constitutional: Denies chills and Denies fever(s) Cardiovascular: Cardiovascular: Denies chest pain, Denies diaphoresis, Denies dyspnea and Denies paroxysmal nocturnal dyspnea Respiratory: Respiratory: Denies chest congestion, Denies cough and Denies dyspnea Integumentary/Breasts: Skin/Breast: Denies lesions and Denies rash Exam Const: General: comfortable and no acute distress Orientation/consciousness: patient oriented x3 GI: Inspection: normal to inspection and non-distended GI Palp: Yes Soft to palpation, Yes Tenderness to palpation present (GI) (Left lower quadrant, less than yesterday. Rest of abdomen nontender) and Yes Guarding due to palpation present (GI) Auscultation: Hypoactive bowel sounds present Neuro: General: patient oriented x3 and no focal motor deficits Extrem: General: no calf tenderness and no edema Psych: Affect: normal affect Insight: Good insight present (Psych) Judgement: Good judgement present (Psych) Objective Data Vital Signs Vital Signs: Vital Signs - 24 hr 05/06/23 20:11 05/06/23 20:55 05/07/23 04:44 Temperature 37.0 C 36.8 C Pulse Rate 77 84 Respiratory Rate 14 16 Blood Pressure 136/70 150/75 H Pulse Oximetry 99 99 Oxygen Delivery Room Air 05/07/23 08:53 05/07/23 08:45 Temperature 36.7 C Pulse Rate Respiratory Rate Blood Pressure Pulse Oximetry Oxygen Delivery Room Air Intake/Output Intake/Output: Intake & Output 05/04/23 05/05/23 05/06/23 05/07/23 23:59 23:59 23:59 23:59 Intake Total 1000 2600 1350 Output Total 700 Balance 1000 1900 1350 Meds/Results Medications: Active Medications Generic Name Dose Route Start Last Admin Trade Name Freq PRN Reason Stop Dose Admin Acetaminophen 500 mg 05/06/23 15:17 Acetaminophen 500 Mg Tablet PO Q6H PRN Mild Pain (1-3) or Fever Hydrocodone Bitart/Acetaminophen 1 tab 05/07/23 13:51 Hydrocodone/Acetaminophen (*Crx) 5-325 Mg Tablet PO Q6H PRN Pain Rated 4-6 Enoxaparin Sodium 40 mg 05/07/23 09:00 05/07/23 08:45 Enoxaparin 40 Mg/0.4 Ml Syringe SUB-Q 40 mg DAILY CATINA Administration Piperacillin/Tazobactam/Dextrose 3.375 gm in 50 mls @ 100 mls/hr 05/06/23 06:00 05/07/23 13:41 Zosyn 3.375 Gm/Ns 50 Ml IVPB Infused Q6HR CATINA Infusion Sodium Chloride 1,000 mls @ 100 mls/hr 05/06/23 01:35 05/07/23 13:11 Normal Saline Iv IV CONT 125 mls/hr .Q10H CAITNA Administration Ibuprofen 800 mg in 200 mls @ 400 mls/hr 05/06/23 15:17 05/07/23 09:14 Caldolor 800 Mg/200 Ml IVPB Infused Q6H PRN Infusion Pain Rated 4-6 Morphine Sulfate 4 mg 05/06/23 15:17 Morphine Sulfate (*Crx) 4 Mg/Ml Inj IV PUSH Q2H PRN Pain Rated 7-10 Naloxone HCl 0.1 mg 05/06/23 15:17 Naloxone Hcl 0.4 Mg/Ml Vial IV PUSH Q2M PRN Opiate Reversal Ondansetron HCl 4 mg 05/06/23 01:33 Ondansetron Inj 4 Mg/2 Ml Vial IV PUSH Q4H PRN Nausea Pantoprazole Sodium 40 mg 05/07/23 09:00 05/07/23 08:44 Pantoprazole 40 Mg Tablet PO 40 mg QAM CATINA Administration Radiology Results: ITS Impressions Abdomen/Pelvis CT 05/06/23 00:01 IMPRESSION: 1. Acute sigmoid diverticulitis with focal perforation.
[2023-05-07 19:35] VITALS: BP 154/74; PULSE 90; RESP 16; TEMP 37.6; O2SAT 98
[2023-05-07] MEDS: ACETAMINOPHEN 500 MG TABLET PO (20:50)
[2023-05-08] MEDS: SODIUM CHLORIDE 0.9% IV 1,000 ML 125 ML IV CONT
[2023-05-08] MEDS: PIPERACILLN/TAZ 3.375GM/NS50ML 3.375 GM/50 ML BAG IVPB ×3 (05:45→18:51)
[2023-05-08 05:46] VITALS: BP 154/79; PULSE 81; RESP 16; TEMP 36.9; O2SAT 98
[2023-05-08 06:44] LABS: Basophils Percent Auto 0.4 % (0.2-1.2); Eosinophils Absolute Auto 0.3 K/mm3 (0-0.3); Eosinophils Percent Auto 3.3 % (0-4.4); Hematocrit 41.8 % (42.0-52.0); Hemoglobin 13.2 g/dL (14.0-18.0); Immature Granulocyte Absolute 0.14 K/mm3 (0.00-0.031); Immature Granulocyte Percent A 1.4 % (0-0.5); Lymphocytes Absolute Auto 0.89 K/mm3 (0.9-3.2); Lymphocytes Percent Auto 9.2 % (18.3-44.2); Mean Corpuscular HGB Conc 31.6 g/dl (32-36); Mean Corpuscular Hemoglobin 30.6 pg (26-34); Mean Corpuscular Volume 96.8 fl (80-100); Mean Platelet Volume 9.8 fl (7.4-10.4); Monocytes Percent Auto 10.4 % (2.6-8.5); Neutrophils Absolute Auto 7.3 K/mm3 (1.3-6.7); Neutrophils Percent Auto 75.3 % (45.5-73.1); Platelet Count Result 188 k/mm3 (150-375); Red Blood Count 4.32 M/mm3 (4.6-6.20); Red Cell Distribution Width 11.9 % (11.5-14.5); White Blood Count 9.7 K/mm3 (4.5-10.0)
[2023-05-08 07:00] LABS: Alanine Aminotransferase 42 U/L (6-50); Alkaline Phosphatase 140 U/L (38-126); Anion Gap 11 mmol/L (8-16); Aspartate Amino Transferase 39 U/L (17-59); Bilirubin,Total 2.4 mg/dL (0.2-1.3); Blood Urea Nitrogen 12 mg/dL (9-20); Calcium 8.5 mg/dL (8.4-10.2); Carbon Dioxide 15 mmol/L (22-30); Chloride 106 mmol/L (98-107); Estimated CRCL calculation 120 ml/min; Estimated Glomerular Filt Rate > 60; Glucose 76 mg/dL (65-110); Potassium 4.2 mmol/L (3.4-5.0); Sodium 132 mmol/L (137-145)
[2023-05-08] MEDS: PANTOPRAZOLE 40 MG TABLET PO (08:35)
[2023-05-08] MEDS: ENOXAPARIN 40 MG/0.4 ML SYRINGE SUB-Q (08:35)
[2023-05-08 14:00] VITALS: BP 126/98; PULSE 84; RESP 16; TEMP 36.9; O2SAT 98
--- NOTE | 2023-05-08 14:32 | PM.IMPN ---
Progress Note: A&P Assessment and Plan (1) Diverticulitis: Code(s): K57.92 - Diverticulitis of intestine, part unspecified, without perforation or abscess without bleeding Status: Deleted Assessment and Plan: CT abdomen pelvis showed sigmoid diverticulitis with perforation. IV Zosyn IV fluids discontinued General surgery consulted. Advanced diet as tolerated Analgesics p.r.n. Blood cultures x2 no growth to date (2) Bowel perforation: Code(s): K63.1 - Perforation of intestine (nontraumatic) Status: Deleted Assessment and Plan: general surgery consulted Subjective Date/time seen: 05/08/23 14:32 Interval history: Patient is doing much better today. he is up and walking around the room. Still has mild discomfort in the LLQ. General surgery wanting to keep patient another night due to lingering abdominal pain. Diet advanced as tolerated. Is having bowel movements. Exam Narrative: GENERAL: Comfortable, no acute distress HENMT: moist mucous membranes EYES: EOM intact b/l NECK: no lymphadenopathy RESPIRATORY: clear to auscultation CARDIO: RRR GI: soft, Left lower quadrant tenderness (improved), bowel sounds present SKIN: no rashes EXTREMITIES: no edema, redness or tenderness Objective Data Vital Signs Vital Signs: Vital Signs - 24 hr 05/07/23 19:35 05/07/23 20:00 05/08/23 05:46 Temperature 99.7 F H 98.5 F Pulse Rate 90 81 Respiratory Rate 16 16 Blood Pressure 154/74 H 154/79 H Pulse Oximetry 98 98 Oxygen Delivery Room Air 05/08/23 08:30 05/08/23 14:00 Temperature 98.4 F Pulse Rate 84 Respiratory Rate 16 Blood Pressure 126/98 H Pulse Oximetry 98 Oxygen Delivery Room Air Intake/Output Intake/Output: Intake & Output 05/05/23 05/06/23 05/07/23 05/08/23 23:59 23:59 23:59 23:59 Intake Total 1000 2600 3360 1080 Output Total 700 Balance 1000 1900 3360 1080 Meds/Results Medications: Active Medications Generic Name Dose Route Start Last Admin Trade Name Freq PRN Reason Stop Dose Admin Acetaminophen 500 mg 05/06/23 15:17 05/07/23 20:50 Acetaminophen 500 Mg Tablet PO 500 mg Q6H PRN Administration Mild Pain (1-3) or Fever Hydrocodone Bitart/Acetaminophen 1 tab 10/28/23 13:51 Hydrocodone/Acetaminophen (*Crx) 5-325 Mg Tablet PO Q6H PRN Pain Rated 4-6 Enoxaparin Sodium 40 mg 05/07/23 09:00 05/08/23 08:35 Enoxaparin 40 Mg/0.4 Ml Syringe SUB-Q 40 mg DAILY CATINA Administration Piperacillin/Tazobactam/Dextrose 3.375 gm in 50 mls @ 100 mls/hr 05/06/23 06:00 05/08/23 12:37 Zosyn 3.375 Gm/Ns 50 Ml IVPB Infused Q6HR CATINA Infusion Ibuprofen 800 mg in 200 mls @ 400 mls/hr 05/06/23 15:17 05/07/23 09:14 Caldolor 800 Mg/200 Ml IVPB Infused Q6H PRN Infusion Pain Rated 4-6 Morphine Sulfate 4 mg 05/06/23 15:17 Morphine Sulfate (*Crx) 4 Mg/Ml Inj IV PUSH Q2H PRN Pain Rated 7-10 Naloxone HCl 0.1 mg 05/06/23 15:17 Naloxone Hcl 0.4 Mg/Ml Vial IV PUSH Q2M PRN Opiate Reversal Ondansetron HCl 4 mg 05/06/23 01:33 Ondansetron Inj 4 Mg/2 Ml Vial IV PUSH Q4H PRN Nausea Pantoprazole Sodium 40 mg 05/07/23 09:00 05/08/23 08:35 Pantoprazole 40 Mg Tablet PO 40 mg QAM CATINA Administration Radiology Results: ITS Impressions Abdomen/Pelvis CT 05/06/23 00:01 IMPRESSION: 1. Acute sigmoid diverticulitis with focal perforation. Labs Labs: Laboratory Results - last 24 hr 05/08/23 06:00 WBC 9.7 RBC 4.32 L Hgb 13.2 L Hct 41.8 L MCV 96.8 MCH 30.6 MCHC 31.6 L RDW 11.9 Plt Count 188 MPV 9.8 Immature Gran % (Auto) 1.4 H Neut % (Auto) 75.3 H Lymph % (Auto) 9.2 L Leslie % (Auto) 10.4 H Eos % (Auto) 3.3 Baso % (Auto) 0.4 Lymph # (Auto) 0.89 L Leslie # (Auto) 1.0 H Eos # (Auto) 0.3 Baso # (Auto) 0.0 Abs Immat Gran (auto) 0.14 H Absolute Neuts (auto) 7.3 H Absolute Nuc
--- NOTE | 2023-05-08 15:10 | PM.PNGS ---
Progress Note: A&P Assessment and Plan (1) Diverticulitis of colon with perforation: Code(s): K57.20 - Diverticulitis of large intestine with perforation and abscess without bleeding Status: Acute Assessment and Plan: Tolerating low-fiber diet and continuing to improve. He still very tender in the left lower quadrant, more than I would like to see before discharging him. Continue IV antibiotics and recheck labs and exam again in the a.m.. If he remains with significant tenderness tomorrow, probably will repeat CT scan abdomen and pelvis. Subjective Subjective Date/Time Seen: 05/08/23 15:10 Patient reports: feels better, pain is less, tolerating a regular diet (Low-fiber diet), voiding w/o difficulty, bowel movement and afebrile Review of Systems Review of Systems: All systems reviewed & are unremarkable except as noted in HPI and below (HPI) Exam Const: General: comfortable and no acute distress Orientation/consciousness: patient oriented x3 GI: Inspection: normal to inspection and non-distended GI Palp: Yes Soft to palpation, Yes Tenderness to palpation present (GI) (Still very tender left lower quadrant), No Guarding due to palpation present (GI), No Hernia present, No Palpable mass present and No Rebound tenderness present Auscultation: Hypoactive bowel sounds present Neuro: General: patient oriented x3 and no focal motor deficits Extrem: General: no calf tenderness and no edema Psych: Affect: normal affect Insight: Good insight present (Psych) Judgement: Good judgement present (Psych) Objective Data Vital Signs Vital Signs: Vital Signs - 24 hr 05/07/23 19:35 05/07/23 20:00 05/08/23 05:46 Temperature 37.6 C H 36.9 C Pulse Rate 90 81 Respiratory Rate 16 16 Blood Pressure 154/74 H 154/79 H Pulse Oximetry 98 98 Oxygen Delivery Room Air 05/08/23 08:30 05/08/23 14:00 Temperature 36.9 C Pulse Rate 84 Respiratory Rate 16 Blood Pressure 126/98 H Pulse Oximetry 98 Oxygen Delivery Room Air Intake/Output Intake/Output: Intake & Output 05/05/23 05/06/23 05/07/23 05/08/23 23:59 23:59 23:59 23:59 Intake Total 1000 2600 3360 1080 Output Total 700 Balance 1000 1900 3360 1080 Meds/Results Medications: Active Medications Generic Name Dose Route Start Last Admin Trade Name Freq PRN Reason Stop Dose Admin Acetaminophen 500 mg 05/06/23 15:17 05/07/23 20:50 Acetaminophen 500 Mg Tablet PO 500 mg Q6H PRN Administration Mild Pain (1-3) or Fever Hydrocodone Bitart/Acetaminophen 1 tab 05/07/23 13:51 Hydrocodone/Acetaminophen (*Crx) 5-325 Mg Tablet PO Q6H PRN Pain Rated 4-6 Enoxaparin Sodium 40 mg 05/07/23 09:00 05/08/23 08:35 Enoxaparin 40 Mg/0.4 Ml Syringe SUB-Q 40 mg DAILY CATINA Administration Piperacillin/Tazobactam/Dextrose 3.375 gm in 50 mls @ 100 mls/hr 05/06/23 06:00 05/08/23 12:37 Zosyn 3.375 Gm/Ns 50 Ml IVPB Infused Q6HR CATINA Infusion Ibuprofen 800 mg in 200 mls @ 400 mls/hr 05/06/23 15:17 05/07/23 09:14 Caldolor 800 Mg/200 Ml IVPB Infused Q6H PRN Infusion Pain Rated 4-6 Morphine Sulfate 4 mg 05/06/23 15:17 Morphine Sulfate (*Crx) 4 Mg/Ml Inj IV PUSH Q2H PRN Pain Rated 7-10 Naloxone HCl 0.1 mg 05/06/23 15:17 Naloxone Hcl 0.4 Mg/Ml Vial IV PUSH Q2M PRN Opiate Reversal Ondansetron HCl 4 mg 05/06/23 01:33 Ondansetron Inj 4 Mg/2 Ml Vial IV PUSH Q4H PRN Nausea Pantoprazole Sodium 40 mg 05/07/23 09:00 05/08/23 08:35 Pantoprazole 40 Mg Tablet PO 40 mg QAM CATINA Administration Radiology Results: ITS Impressions Abdomen/Pelvis CT 05/06/23 00:01 IMPRESSION: 1. Acute sigmoid diverticulitis with focal perforation. Labs Labs: Laboratory Results - last 24 hr 05/08/23 06:00 WBC 9.7 RBC 4.32 L Hgb 13.2 L Hct 41.8 L MCV 96.8 MCH 30.6 MCHC 31.6 L RDW 11.9 Plt Count 188 MPV 9.8 Immature Gran % (A
[2023-05-08 21:27] VITALS: O2SAT 97
[2023-05-08 21:37] VITALS: BP 152/76; PULSE 77; RESP 14; TEMP 37.2; O2SAT 97
[2023-05-09] MEDS: PIPERACILLN/TAZ 3.375GM/NS50ML 3.375 GM/50 ML BAG IVPB ×5 (00:55→23:43)
[2023-05-09 04:10] VITALS: BP 135/80; PULSE 75; RESP 14; TEMP 36.8; O2SAT 98
[2023-05-09 06:05] LABS: Hematocrit 41.5 % (42.0-52.0); Hemoglobin 13.9 g/dL (14.0-18.0); Mean Corpuscular HGB Conc 33.5 g/dl (32-36); Mean Corpuscular Hemoglobin 30.8 pg (26-34); Mean Platelet Volume 9.2 fl (7.4-10.4); Platelet Count Result 220 k/mm3 (150-375); Red Blood Count 4.51 M/mm3 (4.6-6.20); Red Cell Distribution Width 11.8 % (11.5-14.5); White Blood Count 6.9 K/mm3 (4.5-10.0)
[2023-05-09 06:18] LABS: Anion Gap 3 mmol/L (8-16); Blood Urea Nitrogen 9 mg/dL (9-20); Calcium 8.8 mg/dL (8.4-10.2); Carbon Dioxide 30 mmol/L (22-30); Chloride 101 mmol/L (98-107); Estimated CRCL calculation 105 ml/min; Estimated Glomerular Filt Rate > 60; Glucose 110 mg/dL (65-110); Potassium 3.7 mmol/L (3.4-5.0); Sodium 134 mmol/L (137-145)
[2023-05-09 08:03] LABS: Alanine Aminotransferase 81 U/L (6-50); Albumin Level 3.2 g/dL (3.5-5.1); Alkaline Phosphatase 191 U/L (38-126); Aspartate Amino Transferase 64 U/L (17-59); Bilirubin,Total 1.3 mg/dL (0.2-1.3)
[2023-05-09] MEDS: PANTOPRAZOLE 40 MG TABLET PO (08:20)
[2023-05-09] MEDS: ENOXAPARIN 40 MG/0.4 ML SYRINGE SUB-Q (08:20)
[2023-05-09 08:34] LABS: Hepatitis B Surface Antigen Negative (Negative)
[2023-05-09 08:40] LABS: HAV RESULT Negative (Negative); Hepatitis B Core IgM Result Negative (Negative)
[2023-05-09 08:51] LABS: Hepatitis C Virus Antibody Negative (Negative)
--- NOTE | 2023-05-09 09:36 | PM.PNGS ---
Progress Note: A&P Assessment and Plan (1) Diverticulitis of colon with perforation: Code(s): K57.20 - Diverticulitis of large intestine with perforation and abscess without bleeding Status: Acute Assessment and Plan: Abdominal pain continues to improve, but still with a fair amount of LLQ tenderness on exam. WBC normal. CT abdomen and pelvis was done this morning and has been reviewed. It showed acute sigmoid diverticulitis with microperforation and an increase in small volume of pelvic ascites. No organized fluid collection that needs drained at this time. Discussed CT results with Dr. Kaye. We would recommend continuing IV antibiotics until his abdominal tenderness improves. Will continue a low fiber diet. Reassess again tomorrow. Plan I have discussed the patient's case and plan of care with Dr. Kaye. Subjective Subjective Date/Time Seen: 05/09/23 09:36 Patient reports: feels better, pain is less, tolerating a regular diet, flatus, bowel movement and afebrile Interval history: This is a 67 yo man who presented with CT evidence of acute sigmoid diverticulitis with microperforation. He has been treated with IV antibiotics and diet has been advanced to low fiber over the weekend. Chart reviewed. Patient feeling better today. Abdominal pain continues to improve daily. No nausea or vomiting. No new complaints or acute events overnight. Patient did go down for a CT scan this morning ordered by the Hospitalist. Exam Const: General: no acute distress and awake Orientation/consciousness: patient oriented x3 GI: Inspection: non-distended GI Palp: Yes Soft to palpation, Yes Tenderness to palpation present (GI) (LLQ), Yes Guarding due to palpation present (GI) (LLQ) and No Rebound tenderness present Auscultation: normal bowel sounds Objective Data Vital Signs Vital Signs: Vital Signs - 24 hr 05/08/23 14:00 05/08/23 21:37 05/08/23 20:00 Temperature 98.4 F 98.9 F Pulse Rate 84 77 Respiratory Rate 16 14 Blood Pressure 126/98 H 152/76 H Pulse Oximetry 98 97 Oxygen Delivery Room Air 05/09/23 04:10 05/08/23 21:27 05/09/23 08:25 Temperature 98.2 F Pulse Rate 75 Respiratory Rate 14 Blood Pressure 135/80 Pulse Oximetry 98 97 Oxygen Delivery Room Air Room Air Intake/Output Intake/Output: Intake & Output 05/06/23 05/07/23 05/08/23 05/09/23 23:59 23:59 23:59 23:59 Intake Total 2600 3360 1702 370 Output Total 700 Balance 1900 3360 1702 370 Meds/Results Medications: Active Medications Generic Name Dose Route Start Last Admin Trade Name Freq PRN Reason Stop Dose Admin Acetaminophen 500 mg 05/06/23 15:17 05/07/23 20:50 Acetaminophen 500 Mg Tablet PO 500 mg Q6H PRN Administration Mild Pain (1-3) or Fever Hydrocodone Bitart/Acetaminophen 1 tab 05/07/23 13:51 Hydrocodone/Acetaminophen (*Crx) 5-325 Mg Tablet PO Q6H PRN Pain Rated 4-6 Enoxaparin Sodium 40 mg 05/07/23 09:00 05/09/23 08:20 Enoxaparin 40 Mg/0.4 Ml Syringe SUB-Q 40 mg DAILY CATINA Administration Piperacillin/Tazobactam/Dextrose 3.375 gm in 50 mls @ 100 mls/hr 05/06/23 06:00 05/09/23 06:25 Zosyn 3.375 Gm/Ns 50 Ml IVPB 100 mls/hr Q6HR CATINA Administration Ibuprofen 800 mg in 200 mls @ 400 mls/hr 05/06/23 15:17 05/07/23 09:14 Caldolor 800 Mg/200 Ml IVPB Infused Q6H PRN Infusion Pain Rated 4-6 Morphine Sulfate 4 mg 05/06/23 15:17 Morphine Sulfate (*Crx) 4 Mg/Ml Inj IV PUSH Q2H PRN Pain Rated 7-10 Naloxone HCl 0.1 mg 05/06/23 15:17 Naloxone Hcl 0.4 Mg/Ml Vial IV PUSH Q2M PRN Opiate Reversal Ondansetron HCl 4 mg 05/06/23 01:33 Ondansetron Inj 4 Mg/2 Ml Vial IV PUSH Q4H PRN Nausea Pantoprazole Sodium 40 mg 05/07/23 09:00 05/09/23 08:20 Pantoprazole 40 Mg Tablet PO 40 mg QAM CATINA Administration Radiology Results: ITS Impressions Abdomen Ultrasound 05/08/23 18:07 IMPRESSION: Echoge
--- NOTE | 2023-05-09 12:28 | PM.IMPN ---
Progress Note: A&P Assessment and Plan (1) Diverticulitis: Code(s): K57.92 - Diverticulitis of intestine, part unspecified, without perforation or abscess without bleeding Status: Deleted Assessment and Plan: CT abdomen pelvis showed sigmoid diverticulitis with perforation. IV Zosyn IV fluids discontinued General surgery consulted. Advanced diet as tolerated Analgesics p.r.n. Blood cultures x2 no growth to date Repeat CT scan showing acute sigmoid diverticulitis with micro perforation and worsened small volume pelvic ascites. (2) Hepatic steatosis: Code(s): K76.0 - Fatty (change of) liver, not elsewhere classified Status: Acute Assessment and Plan: patient presented to the hospital with elevated bilirubin of 1.7. Hepatitis panel negative. CT abdomen pelvis showed hepatic steatosis. Right upper quadrant ultrasound also showing hepatic steatosis. Discussed diet and lifestyle with the patient and he is receptive to this. Trend LFTs Subjective Date/time seen: 05/09/23 12:28 Interval history: Patient doing well with no complaints at this time. He still has some mild discomfort when he is getting up out of bed. He is having regular bowel movements. General surgery recommending he continue to stay in the hospital due to his unimproved CT scan. Continue with IV antibiotics. Exam Narrative: GENERAL: Comfortable, no acute distress HENMT: moist mucous membranes EYES: EOM intact b/l NECK: no lymphadenopathy RESPIRATORY: clear to auscultation CARDIO: RRR GI: soft, Left lower quadrant tenderness (improved), bowel sounds present SKIN: no rashes EXTREMITIES: no edema, redness or tenderness Objective Data Vital Signs Vital Signs: Vital Signs - 24 hr 05/08/23 14:00 05/08/23 21:37 05/08/23 20:00 Temperature 98.4 F 98.9 F Pulse Rate 84 77 Respiratory Rate 16 14 Blood Pressure 126/98 H 152/76 H Pulse Oximetry 98 97 Oxygen Delivery Room Air 05/09/23 04:10 05/08/23 21:27 05/09/23 08:25 Temperature 98.2 F Pulse Rate 75 Respiratory Rate 14 Blood Pressure 135/80 Pulse Oximetry 98 97 Oxygen Delivery Room Air Room Air Intake/Output Intake/Output: Intake & Output 05/06/23 05/07/23 05/08/23 05/09/23 23:59 23:59 23:59 23:59 Intake Total 2600 3360 1702 920 Output Total 700 Balance 1900 3360 1702 920 Meds/Results Medications: Active Medications Generic Name Dose Route Start Last Admin Trade Name Freq PRN Reason Stop Dose Admin Acetaminophen 500 mg 05/06/23 15:17 05/07/23 20:50 Acetaminophen 500 Mg Tablet PO 500 mg Q6H PRN Administration Mild Pain (1-3) or Fever Hydrocodone Bitart/Acetaminophen 1 tab 05/07/23 13:51 Hydrocodone/Acetaminophen (*Crx) 5-325 Mg Tablet PO Q6H PRN Pain Rated 4-6 Enoxaparin Sodium 40 mg 05/07/23 09:00 05/09/23 08:20 Enoxaparin 40 Mg/0.4 Ml Syringe SUB-Q 40 mg DAILY CATINA Administration Piperacillin/Tazobactam/Dextrose 3.375 gm in 50 mls @ 100 mls/hr 05/06/23 06:00 05/09/23 11:48 Zosyn 3.375 Gm/Ns 50 Ml IVPB 100 mls/hr Q6HR CATINA Administration Ibuprofen 800 mg in 200 mls @ 400 mls/hr 05/06/23 15:17 05/07/23 09:14 Caldolor 800 Mg/200 Ml IVPB Infused Q6H PRN Infusion Pain Rated 4-6 Morphine Sulfate 4 mg 05/06/23 15:17 Morphine Sulfate (*Crx) 4 Mg/Ml Inj IV PUSH Q2H PRN Pain Rated 7-10 Naloxone HCl 0.1 mg 05/06/23 15:17 Naloxone Hcl 0.4 Mg/Ml Vial IV PUSH Q2M PRN Opiate Reversal Ondansetron HCl 4 mg 05/06/23 01:33 Ondansetron Inj 4 Mg/2 Ml Vial IV PUSH Q4H PRN Nausea Pantoprazole Sodium 40 mg 05/07/23 09:00 05/09/23 08:20 Pantoprazole 40 Mg Tablet PO 40 mg QAM CATINA Administration Radiology Results: ITS Impressions Abdomen Ultrasound 05/08/23 18:07 IMPRESSION: Echogenic liver, most commonly due to steatosis but also can be seen with hep
[2023-05-09 14:00] VITALS: BP 136/76; PULSE 72; RESP 18; TEMP 36.6; O2SAT 95
[2023-05-09 20:46] VITALS: BP 132/74; PULSE 67; RESP 20; TEMP 36.9; O2SAT 100
[2023-05-10 05:02] VITALS: BP 159/79; PULSE 80; RESP 20; TEMP 36.7; O2SAT 97
[2023-05-10] MEDS: PIPERACILLN/TAZ 3.375GM/NS50ML 3.375 GM/50 ML BAG IVPB ×4 (06:12→23:29)
[2023-05-10 06:52] LABS: Mean Corpuscular HGB Conc 34.1 g/dl (32-36); Mean Corpuscular Hemoglobin 30.9 pg (26-34); Mean Corpuscular Volume 90.5 fl (80-100); Mean Platelet Volume 9.3 fl (7.4-10.4); Platelet Count Result 219 k/mm3 (150-375); Red Blood Count 4.53 M/mm3 (4.6-6.20); Red Cell Distribution Width 11.9 % (11.5-14.5); White Blood Count 7.7 K/mm3 (4.5-10.0)
[2023-05-10 07:01] LABS: Alanine Aminotransferase 109 U/L (6-50); Albumin Level 3.2 g/dL (3.5-5.1); Alkaline Phosphatase 184 U/L (38-126); Anion Gap 6 mmol/L (8-16); Aspartate Amino Transferase 70 U/L (17-59); Bilirubin,Total 0.9 mg/dL (0.2-1.3); Blood Urea Nitrogen 11 mg/dL (9-20); Calcium 8.8 mg/dL (8.4-10.2); Carbon Dioxide 27 mmol/L (22-30); Chloride 101 mmol/L (98-107); Estimated CRCL calculation 105 ml/min; Estimated Glomerular Filt Rate > 60; Glucose 109 mg/dL (65-110); Potassium 3.4 mmol/L (3.4-5.0); Sodium 134 mmol/L (137-145)
[2023-05-10] MEDS: PANTOPRAZOLE 40 MG TABLET PO (08:04)
[2023-05-10] MEDS: ENOXAPARIN 40 MG/0.4 ML SYRINGE SUB-Q (08:04)
--- NOTE | 2023-05-10 13:13 | PM.PNGS ---
Progress Note: A&P Assessment and Plan (1) Diverticulitis of colon with perforation: Code(s): K57.20 - Diverticulitis of large intestine with perforation and abscess without bleeding Status: Acute Assessment and Plan: Patient improve more with additional IV antibiotics. With pretty significant tenderness and no improvement on CT scan from yesterday, seems prudent to continue IV antibiotics at least until tomorrow. His white blood cell count has been normal for the last 3 days. He feels good and is able to get up with minimal discomfort. Will recheck again tomorrow. If exam continues to improve, probably discharge on Augmentin or other oral antibiotic. Subjective Subjective Date/Time Seen: 05/10/23 13:13 Patient reports: feels better, pain is less, tolerating a regular diet, voiding w/o difficulty, bowel movement and afebrile Review of Systems Review of Systems: All systems reviewed & are unremarkable except as noted in HPI and below (HPI) Exam Const: General: comfortable, no acute distress, alert and awake Orientation/consciousness: patient oriented x3 GI: Inspection: normal to inspection and non-distended GI Palp: Yes Soft to palpation, Yes Tenderness to palpation present (GI) (Mild left lower quadrant tenderness, much better), No Guarding due to palpation present (GI) and No Rebound tenderness present Neuro: General: patient oriented x3 and no focal motor deficits Extrem: General: no calf tenderness and no edema Psych: Affect: normal affect Insight: Good insight present (Psych) Judgement: Good judgement present (Psych) Objective Data Vital Signs Vital Signs: Vital Signs - 24 hr 05/09/23 14:00 05/09/23 20:46 05/09/23 20:00 Temperature 36.6 C 36.9 C Pulse Rate 72 67 Respiratory Rate 18 20 Blood Pressure 136/76 132/74 Pulse Oximetry 95 100 Oxygen Delivery Room Air 05/10/23 05:02 05/10/23 08:00 Temperature 36.7 C Pulse Rate 80 Respiratory Rate 20 Blood Pressure 159/79 H Pulse Oximetry 97 Oxygen Delivery Room Air Intake/Output Intake/Output: Intake & Output 05/07/23 05/08/23 05/09/23 05/10/23 23:59 23:59 23:59 23:59 Intake Total 3360 1702 1830 970 Balance 3360 1702 1830 970 Meds/Results Medications: Active Medications Generic Name Dose Route Start Last Admin Trade Name Freq PRN Reason Stop Dose Admin Acetaminophen 500 mg 05/06/23 15:17 05/07/23 20:50 Acetaminophen 500 Mg Tablet PO 500 mg Q6H PRN Administration Mild Pain (1-3) or Fever Hydrocodone Bitart/Acetaminophen 1 tab 05/07/23 13:51 Hydrocodone/Acetaminophen (*Crx) 5-325 Mg Tablet PO Q6H PRN Pain Rated 4-6 Enoxaparin Sodium 40 mg 05/07/23 09:00 05/10/23 08:04 Enoxaparin 40 Mg/0.4 Ml Syringe SUB-Q 40 mg DAILY CATINA Administration Piperacillin/Tazobactam/Dextrose 3.375 gm in 50 mls @ 100 mls/hr 05/06/23 06:00 05/10/23 11:58 Zosyn 3.375 Gm/Ns 50 Ml IVPB 100 mls/hr Q6HR CATINA Administration Ibuprofen 800 mg in 200 mls @ 400 mls/hr 05/06/23 15:17 05/07/23 09:14 Caldolor 800 Mg/200 Ml IVPB Infused Q6H PRN Infusion Pain Rated 4-6 Morphine Sulfate 4 mg 05/06/23 15:17 Morphine Sulfate (*Crx) 4 Mg/Ml Inj IV PUSH Q2H PRN Pain Rated 7-10 Naloxone HCl 0.1 mg 05/06/23 15:17 Naloxone Hcl 0.4 Mg/Ml Vial IV PUSH Q2M PRN Opiate Reversal Ondansetron HCl 4 mg 05/06/23 01:33 Ondansetron Inj 4 Mg/2 Ml Vial IV PUSH Q4H PRN Nausea Pantoprazole Sodium 40 mg 05/07/23 09:00 05/10/23 08:04 Pantoprazole 40 Mg Tablet PO 40 mg QAM CATINA Administration Radiology Results: ITS Impressions Abdomen Ultrasound 05/08/23 18:07 IMPRESSION: Echogenic liver, most commonly due to steatosis but also can be seen with hepatitis and fibrosis. Abdomen/Pelvis CT 05/09/23 09:25 IMPRESSION: 1. Acute sigmoid diverticulitis with microperforation and worsened small volume of pelvic ascites
--- NOTE | 2023-05-10 13:17 | PM.IMPN ---
Progress Note: A&P Assessment and Plan (1) Diverticulitis: Code(s): K57.92 - Diverticulitis of intestine, part unspecified, without perforation or abscess without bleeding Status: Deleted Assessment and Plan: CT abdomen pelvis showed sigmoid diverticulitis with perforation. IV Zosyn IV fluids discontinued General surgery consulted. Advanced diet as tolerated Analgesics p.r.n. Blood cultures x2 no growth to date Repeat CT scan showing acute sigmoid diverticulitis with micro perforation and worsened small volume pelvic ascites. Surgery recommending adding gentamicin further coverage and anticipated discharge for tomorrow. (2) Hepatic steatosis: Code(s): K76.0 - Fatty (change of) liver, not elsewhere classified Status: Acute Assessment and Plan: patient presented to the hospital with elevated bilirubin of 1.7. Hepatitis panel negative. CT abdomen pelvis showed hepatic steatosis. Right upper quadrant ultrasound also showing hepatic steatosis. Discussed diet and lifestyle with the patient and he is receptive to this. Trend LFTs Subjective Date/time seen: 05/10/23 13:17 Interval history: Patient doing well today. He is having minimal pain. General surgery wanting to keep him for 1 more night of IV antibiotics. Anticipate discharge tomorrow. Discussed this with nurse practitioner General surgery. General surgery recommending adding gentamicin due to unchanged CT scan. Patient having normal bowel movements, denies melena, hematochezia, nausea, vomiting and dysuria. Exam Narrative: GENERAL: Comfortable, no acute distress HENMT: moist mucous membranes EYES: EOM intact b/l NECK: no lymphadenopathy RESPIRATORY: clear to auscultation CARDIO: RRR GI: soft, Nontender, bowel sounds present SKIN: no rashes EXTREMITIES: no edema, redness or tenderness Objective Data Vital Signs Vital Signs: Vital Signs - 24 hr 05/09/23 14:00 05/09/23 20:46 05/09/23 20:00 Temperature 97.9 F 98.5 F Pulse Rate 72 67 Respiratory Rate 18 20 Blood Pressure 136/76 132/74 Pulse Oximetry 95 100 Oxygen Delivery Room Air 05/10/23 05:02 05/10/23 08:00 Temperature 98.1 F Pulse Rate 80 Respiratory Rate 20 Blood Pressure 159/79 H Pulse Oximetry 97 Oxygen Delivery Room Air Intake/Output Intake/Output: Intake & Output 05/07/23 05/08/23 05/09/23 05/10/23 23:59 23:59 23:59 23:59 Intake Total 3360 1702 1830 970 Balance 3360 1702 1830 970 Meds/Results Medications: Active Medications Generic Name Dose Route Start Last Admin Trade Name Freq PRN Reason Stop Dose Admin Acetaminophen 500 mg 05/06/23 15:17 05/07/23 20:50 Acetaminophen 500 Mg Tablet PO 500 mg Q6H PRN Administration Mild Pain (1-3) or Fever Hydrocodone Bitart/Acetaminophen 1 tab 05/07/23 13:51 Hydrocodone/Acetaminophen (*Crx) 5-325 Mg Tablet PO Q6H PRN Pain Rated 4-6 Enoxaparin Sodium 40 mg 05/07/23 09:00 05/10/23 08:04 Enoxaparin 40 Mg/0.4 Ml Syringe SUB-Q 40 mg DAILY CATINA Administration Piperacillin/Tazobactam/Dextrose 3.375 gm in 50 mls @ 100 mls/hr 05/06/23 06:00 05/10/23 11:58 Zosyn 3.375 Gm/Ns 50 Ml IVPB 100 mls/hr Q6HR CATINA Administration Ibuprofen 800 mg in 200 mls @ 400 mls/hr 05/06/23 15:17 05/07/23 09:14 Caldolor 800 Mg/200 Ml IVPB Infused Q6H PRN Infusion Pain Rated 4-6 Morphine Sulfate 4 mg 05/06/23 15:17 Morphine Sulfate (*Crx) 4 Mg/Ml Inj IV PUSH Q2H PRN Pain Rated 7-10 Naloxone HCl 0.1 mg 05/06/23 15:17 Naloxone Hcl 0.4 Mg/Ml Vial IV PUSH Q2M PRN Opiate Reversal Ondansetron HCl 4 mg 05/06/23 01:33 Ondansetron Inj 4 Mg/2 Ml Vial IV PUSH Q4H PRN Nausea Pantoprazole Sodium 40 mg 05/07/23 09:00 05/10/23 08:04 Pantoprazole 40 Mg Tablet PO 40 mg QAM CATINA Administration Radiology Results: ITS Impressions Abdomen Ul
[2023-05-10 14:00] VITALS: BP 122/71; PULSE 76; RESP 19; TEMP 36.7; O2SAT 99
[2023-05-10] MEDS: GENTAMICIN SULFATE INJ 420 MG in DEXTROSE 5% 100 ML 100 MG IVPB (14:44)
[2023-05-10] MEDS: ACETAMINOPHEN 500 MG TABLET PO (17:44)
[2023-05-10 20:00] VITALS: PULSE 65; RESP 18; O2SAT 99
[2023-05-10 20:39] VITALS: BP 143/76; PULSE 65; RESP 18; TEMP 36.8; O2SAT 99
[2023-05-11 02:11] LABS: Basophils Percent Auto 0.5 % (0.2-1.2); Eosinophils Absolute Auto 0.2 K/mm3 (0-0.3); Hematocrit 41.5 % (42.0-52.0); Immature Granulocyte Absolute 0.12 K/mm3 (0.00-0.031); Immature Granulocyte Percent A 1.5 % (0-0.5); Lymphocytes Absolute Auto 1.31 K/mm3 (0.9-3.2); Lymphocytes Percent Auto 16.5 % (18.3-44.2); Mean Corpuscular HGB Conc 33.7 g/dl (32-36); Mean Corpuscular Hemoglobin 30.8 pg (26-34); Mean Corpuscular Volume 91.2 fl (80-100); Mean Platelet Volume 8.9 fl (7.4-10.4); Monocytes Absolute Auto 0.9 K/mm3 (0.1-0.6); Monocytes Percent Auto 10.8 % (2.6-8.5); Neutrophils Absolute Auto 5.4 K/mm3 (1.3-6.7); Neutrophils Percent Auto 67.7 % (45.5-73.1); Platelet Count Result 216 k/mm3 (150-375); Red Blood Count 4.55 M/mm3 (4.6-6.20); Red Cell Distribution Width 11.9 % (11.5-14.5); White Blood Count 7.9 K/mm3 (4.5-10.0)
[2023-05-11 02:21] LABS: Alanine Aminotransferase 117 U/L (6-50); Albumin Level 3.3 g/dL (3.5-5.1); Alkaline Phosphatase 182 U/L (38-126); Anion Gap 2 mmol/L (8-16); Aspartate Amino Transferase 64 U/L (17-59); Bilirubin,Total 0.9 mg/dL (0.2-1.3); Blood Urea Nitrogen 12 mg/dL (9-20); Calcium 8.9 mg/dL (8.4-10.2); Carbon Dioxide 32 mmol/L (22-30); Chloride 100 mmol/L (98-107); Estimated CRCL calculation 92 ml/min; Estimated Glomerular Filt Rate > 60; Glucose 107 mg/dL (65-110); Potassium 3.8 mmol/L (3.4-5.0); Sodium 134 mmol/L (137-145)
[2023-05-11 02:36] LABS: Gentamicin Random 1.3 ug/mL (5.0-12.0)
[2023-05-11] MEDS: PIPERACILLN/TAZ 3.375GM/NS50ML 3.375 GM/50 ML BAG IVPB ×2 (05:19→12:34)
[2023-05-11 05:59] VITALS: BP 142/78; PULSE 72; RESP 18; TEMP 36.6; O2SAT 98
[2023-05-11] MEDS: PANTOPRAZOLE 40 MG TABLET PO (09:50)
[2023-05-11] MEDS: ENOXAPARIN 40 MG/0.4 ML SYRINGE SUB-Q (09:50)
--- NOTE | 2023-05-11 12:59 | PM.PNGS ---
Progress Note: A&P Assessment and Plan (1) Diverticulitis of colon with perforation: Code(s): K57.20 - Diverticulitis of large intestine with perforation and abscess without bleeding Status: Acute Assessment and Plan: Continues to improve. Recommend discharge today. Patient will follow-up with me in 2 weeks. Continue low-fiber diet after discharge. Will write prescription for 5 days of Augmentin. Doing very well. Subjective Subjective Date/Time Seen: 05/11/23 12:59 Patient reports: feels better, pain is less, tolerating a regular diet (Low-fiber diet), bowel movement and afebrile Review of Systems Review of Systems: All systems reviewed & are unremarkable except as noted in HPI and below (HPI) Exam Const: General: comfortable and no acute distress Orientation/consciousness: patient oriented x3 GI: Inspection: normal to inspection and non-distended GI Palp: Yes Soft to palpation, Yes Tenderness to palpation present (GI) (Left lower quadrant tenderness improved, nearly gone), No Guarding due to palpation present (GI) and No Rebound tenderness present Neuro: General: patient oriented x3 and no focal motor deficits Extrem: General: no calf tenderness and no edema Psych: Affect: normal affect Insight: Good insight present (Psych) Judgement: Good judgement present (Psych) Objective Data Vital Signs Vital Signs: Vital Signs - 24 hr 05/10/23 14:00 05/10/23 20:39 05/10/23 20:00 Temperature 36.7 C 36.8 C Pulse Rate 76 65 65 Respiratory Rate 19 18 18 Blood Pressure 122/71 143/76 H Pulse Oximetry 99 99 99 Oxygen Delivery Room Air 05/11/23 05:59 05/11/23 09:50 Temperature 36.6 C Pulse Rate 72 Respiratory Rate 18 Blood Pressure 142/78 H Pulse Oximetry 98 Oxygen Delivery Room Air Intake/Output Intake/Output: Intake & Output 05/08/23 05/09/23 05/10/23 05/11/23 23:59 23:59 23:59 23:59 Intake Total 1702 1830 1330 790 Balance 1702 1830 1330 790 Meds/Results Medications: Active Medications Generic Name Dose Route Start Last Admin Trade Name Freq PRN Reason Stop Dose Admin Acetaminophen 500 mg 05/06/23 15:17 05/10/23 17:44 Acetaminophen 500 Mg Tablet PO 500 mg Q6H PRN Administration Mild Pain (1-3) or Fever Hydrocodone Bitart/Acetaminophen 1 tab 05/07/23 13:51 Hydrocodone/Acetaminophen (*Crx) 5-325 Mg Tablet PO Q6H PRN Pain Rated 4-6 Enoxaparin Sodium 40 mg 05/07/23 09:00 05/11/23 09:50 Enoxaparin 40 Mg/0.4 Ml Syringe SUB-Q 40 mg DAILY CATINA Administration Piperacillin/Tazobactam/Dextrose 3.375 gm in 50 mls @ 100 mls/hr 05/06/23 06:00 05/11/23 12:34 Zosyn 3.375 Gm/Ns 50 Ml IVPB 100 mls/hr Q6HR CATINA Administration Ibuprofen 800 mg in 200 mls @ 400 mls/hr 05/06/23 15:17 05/07/23 09:14 Caldolor 800 Mg/200 Ml IVPB Infused Q6H PRN Infusion Pain Rated 4-6 Gentamicin Sulfate 420 mg/ 110.5 mls @ 100 mls/hr 05/11/23 15:00 Dextrose IVPB Q24H CATINA Morphine Sulfate 4 mg 05/06/23 15:17 Morphine Sulfate (*Crx) 4 Mg/Ml Inj IV PUSH Q2H PRN Pain Rated 7-10 Naloxone HCl 0.1 mg 05/06/23 15:17 Naloxone Hcl 0.4 Mg/Ml Vial IV PUSH Q2M PRN Opiate Reversal Ondansetron HCl 4 mg 05/06/23 01:33 Ondansetron Inj 4 Mg/2 Ml Vial IV PUSH Q4H PRN Nausea Pantoprazole Sodium 40 mg 05/07/23 09:00 05/11/23 09:50 Pantoprazole 40 Mg Tablet PO 40 mg QAM CATINA Administration Radiology Results: ITS Impressions Abdomen Ultrasound 05/08/23 18:07 IMPRESSION: Echogenic liver, most commonly due to steatosis but also can be seen with hepatitis and fibrosis. Abdomen/Pelvis CT 05/09/23 09:25 IMPRESSION: 1. Acute sigmoid diverticulitis with microperforation and worsened small volume of pelvic ascites. Labs Labs: Laboratory Results - last 24 hr 05/11/23 02:05 WBC 7.9 RBC 4.55 L Hgb 14.0 Hct 41.5 L MCV 91.2 MCH 30.8 M
--- NOTE | 2023-05-11 13:38 | PM.DS ---
DS: Admitting Diagnosis Discharge Date 05/11/23 Admitting Diagnosis Diverticulitis Bowel perforation DS: Discharge Diagnosis Discharge Diagnosis (1) Diverticulitis: Code(s): K57.92 - Diverticulitis of intestine, part unspecified, without perforation or abscess without bleeding Status: Deleted (2) Hepatic steatosis: Code(s): K76.0 - Fatty (change of) liver, not elsewhere classified Status: Acute DS: Summary Hospital Course Reason for hospitalization: Diverticulitis Bowel perforation Hospital Course: This is 67-year-old male presented to the hospital on 05/06/2023 with complaints of acute left lower quadrant pain that started in the middle of the night. CT of the abdomen and pelvis revealed acute sigmoid diverticulitis and a focal perforation. General surgery was consulted. Patient started on Zosyn at that time. He also had a repeat CT of the abdomen and pelvis which showed acute sigmoid diverticulitis with micro radiation and worsening small volume of pelvic ascites. Patient was then placed on gentamicin along with his Zosyn and watched for another day in the hospital with general surgery following. Ultrasound of the abdomen showed hepatic steatosis. Labs today revealed white blood cell count of 7.9, hemoglobin 14, hematocrit 41.5, sodium 134, potassium 3.8, BUN 12, creatinine 0.8, AST 64, ALT 117, alk-phos 182. On examination today patient is alert oriented x4, he reports that his pain is 1/10. He denies any nausea vomiting or diarrhea. Vital signs have been stable, he has been afebrile, and he remains on room air. He remains stable for discharge. Dr. Kaye with General surgery seen the patient today and approved that he is okay for discharge he will follow-up with General surgery in 2 weeks, continue a low-fiber diet, and finish a five-day course of Augmentin. Status at Discharge Cognitive/behavioral status at discharge: Alert oriented x4 Functional status at discharge: independent ambulation Overall status at discharge: patient is progressing back to baseline Time Spent with Patient Time attestation: Total time spent providing and/or coordinating discharge services: Time spent: Greater than 30 minutes Exam Narrative: GENERAL: Comfortable, no acute distress HENMT: moist mucous membranes, atraumatic EYES: EOM intact b/l, PERRLA NECK: supple, no JVD, no lymphadenopathy, trachea midline RESPIRATORY: Lungs clear to auscultation, no adventitious lung sounds CARDIO: RRR, normal S1 and S-2. No murmurs gallops or friction rub heard. Peripheral pulses intact, no edema GI: soft, Nontender, nondistended, normoactive bowel sounds present SKIN: no rashes EXTREMITIES: no edema, redness or tenderness Psych: Normal mood, normal affect, normal interaction DS: Data Data Completed and Pending Completed studies during hospitalization: Abdomen pelvis CT x2 Abdomen ultrasound Pending studies at discharge: None Labs on day of discharge: Labs from last 24 hours 05/11/23 02:05 WBC 7.9 RBC 4.55 L Hgb 14.0 Hct 41.5 L MCV 91.2 MCH 30.8 MCHC 33.7 RDW 11.9 Plt Count 216 MPV 8.9 Immature Gran % (Auto) 1.5 H Neut % (Auto) 67.7 Lymph % (Auto) 16.5 L [place] % (Auto) 10.8 H Eos % (Auto) 3.0 Baso % (Auto) 0.5 Lymph # (Auto) 1.31 [place] # (Auto) 0.9 H Eos # (Auto) 0.2 Baso # (Auto) 0.0 Abs Immat Gran (auto) 0.12 H Absolute Neuts (auto) 5.4 Absolute Nucleated RBC 0.0 Nucleated RBC % 0.0 Sodium 134 L Potassium 3.8 Chloride 100 Carbon Dioxide 32 H Anion Gap 2 L BUN 12 Creatinine 0.80 Estim Creat Clear Calc 92 Estimated GFR > 60 Glucose 107 Calcium 8.9 Total Bilirubin 0.9 AST 64 H ALT 117 H Alkaline Phosphatase 182 H Total Protein 6.0 L Albumin 3.3 L Random Gentamicin 1.3 L Preliminary micro results at discharge 05/06/23 00:26 Blood Culture - Preliminary Blood 05/06/23 00:26 Blood Culture - Preliminary Blood Procedures/Treatme
== END 2023-05-11 14:05 | disposition home or self-care (01) | DRG 392 ==
LOC: ANHED 05-06 00:21 → ANH2MED 05-06 02:54
PROVIDERS: Internal Medicine Critical Care Medicine; Student in an Organized Health Care Education/Training Program; Admitting Provider Internal Medicine; Emergency Provider Physician Assistant; PCP Student in an Organized Health Care Education/Training Program; Visit Provider Nurse Practitioner Acute Care
DX: K57.20 Diverticulitis of large intestine with perforation and abscess without bleeding (principal); R18.8 Other ascites; K76.0 Fatty (change of) liver, not elsewhere classified; Z96.652 Presence of left artificial knee joint; Z90.49 Acquired absence of other specified parts of digestive tract
CPT/HCPCS: 36415; 74176; 74177; 76705; 80048; 80053; 80074; 80076; 80170; 81001; 83605; 83690; 85025; 85027; 87040; 96361; 96365; 96366; 96367; 96372; 96374; 96375; 96376; 99285; A9270; C9113; G0378; J1170; J1580; J1650; J1741; J2270; J2543; J7030; Q9967

== ENCOUNTER 2024-01-29 18:17 | Emergency (ER) | payer OTHER, SELFPAY ==
--- NOTE | ~2024-01-29 | CT_ITS ---
EXAMINATION: CT lumbar spine wo con DATE: 01/29/2024 19:37 INDICATION: Left-sided low back pain TECHNIQUE: Computed tomography (CT) of the lumbar spine was performed without intravenous contrast. A utomated exposure control and iterative reconstruction technique were employed. The dose-length produ ct was 1381.80 mGy-cm. COMPARISON: CT abdomen pelvis dated 05/09/2023 and 12/08/2013 FINDINGS: 2 mm retrolisthesis L2 on L3. Unchanged chronic likely physiologic mild anterior wedging at T12. Hyun ining vertebral body heights are normal. No fracture. Lytic lesion with central fat attenuation in th e L4 vertebral body unchanged since 2013 consistent with hemangioma. Moderate disc height loss at L1- L2. Mild disc height loss at T10-T11 and T11-T12 and at the left side of L4-L5. Paravertebral soft ti ssues are unremarkable. Multiple diverticula along the visualized segment of the sigmoid colon withou t adjacent from trace stranding to suggest diverticulitis. The following disc levels are specifically discussed: T12-L1: The disc does not extend beyond the endplate margin. There is mild bilateral facet joint oste oarthritis. There is no neural foraminal stenosis. There is no central canal stenosis. L1-L2: Disc is mildly bulging. There is mild bilateral facet joint osteoarthritis. There is mild bila teral neural foraminal stenosis. There is mild central canal stenosis. L2-L3: Disc is mildly bulging. There is mild bilateral facet joint osteoarthritis. There is moderate bilateral neural foraminal stenosis. There is mild central canal stenosis. L3-L4: Disc is bulging. There is mild bilateral facet joint osteoarthritis. There is moderate bilater al neural foraminal stenosis. There is mild to moderate central canal stenosis. L4-L5: Disc is bulging. There is mild bilateral facet joint osteoarthritis. There is moderate bilater al neural foraminal stenosis. There is moderate central canal stenosis. L5-S1: Disc is mildly bulging. There is left and severe right facet joint osteoarthritis. There is mi ld to moderate left and moderate right neural foraminal stenosis. There is no central canal stenosis. IMPRESSION: 1. Mild to moderate lumbar spondylosis. No acute osseous abnormality. Reviewed, dictated and finalized at location A.
[2024-01-29 18:19] VITALS: BP 151/74; PULSE 69; RESP 18; TEMP 36.4; O2SAT 98
--- NOTE | 2024-01-29 19:22 | ED.BACK ---
HPI - Back Pain/Injury General Chief Complaint: Back Pain/Injury Stated Complaint: back pain Time Seen by Provider: 01/29/24 18:42 Source: patient Mode of arrival: ambulatory Limitations: no limitations History of Present Illness HPI Narrative: This is a 68 year old male that presents to the ER for low back pain. Ongoing over the last 3 weeks. No recent injury or trauma. Pain is worse with certain movements. Relieved with rest. He has been taking Tylenol, anti-inflammatories, muscle relaxer with little relief. Reports deep, burning pain. He was able to make an appointment for physical therapy, but it is not for another 10 days. Denies fevers, saddle anesthesia, bowel/bladder incontinence, numbness, weakness. Related Data Home Medications Medication Instructions Recorded Confirmed omeprazole magnesium 20 mg 20 mg PO HS 05/06/23 05/30/23 tablet,delayed release (Prilosec OTC) Allergies Allergy/AdvReac Type Severity Reaction Status Date / Time FENOFIBRATE NANOCRYSTALLIZED Allergy Mild SWELLING Uncoded 01/29/24 18:32 MOUTH FENOFIBRATE,MICRONIZED Allergy Mild SWELLING Uncoded 01/29/24 18:32 MOUTH Review of Systems Review of Systems: CONSTITUTIONAL: Denies fever MUSCULOSKELETAL: Reports back pain, joint pain, and myalgia. NEUROLOGIC: Denies numbness, or weakness. All systems reviewed & are unremarkable except as noted in HPI and below PMFSH Past Medical History Medical History (Updated 01/30/24 @ 01:04 by Brenna Gamez PA-C) No active medical problems Surgical History Surgical History History of arthroplasty of left knee Hx laparoscopic cholecystectomy Hx of tonsillectomy (Unknown) Family History Family History Father Skin cancer Hypertension Mother Breast cancer Diabetes mellitus Heart disease Social History Social History Social History: patient lives in a house with his . He has 3 kids and 4 grandkids. He admits to drinking occasionally. Denies history of tobacco use or drug use. Smoking status: Never smoker Alcohol intake: current Drinks per week: 1 Substance use: never Lack of Transportation: No Lack of Food: Never True Current Housing: I Have Housing Concerned About Future Housing: No Difficulty Paying Gas/Electric Bills: No Difficulty Paying for Meds: No Currently Unemployed: No Education: Master's Degree or Higher Difficulty w/ Childcare or Family Care: No Gender identity (if verbalized by the patient): Male Spiritual care concerns: No Exam Narrative: GENERAL: Well-appearing, well-nourished, and in no acute distress. HEAD: Normocephalic, atraumatic. EYES: EOMI. CHEST: Clear to auscultation. No respiratory distress. No wheezes rales or rhonchi HEART: Regular rate and rhythm. No murmur heard. Normal peripheral pulses. EXTREMITIES: Normal range of motion. No edema. Normal DP pulse. Strength equal in bilateral lower extremities (5/5) SKIN: Warm, dry, no rash. NEURO: No focal deficits. Alert and oriented x3. PSYCH: Normal mood and affect Course Course Emergency Course: Patient updated on his workup and agrees with plan of care Vital Signs Vital signs: Vital Signs Temperature 97.5 F L 01/29/24 18:19 Pulse Rate 69 01/29/24 18:19 Respiratory Rate 18 01/29/24 18:19 Blood Pressure 151/74 H 01/29/24 18:19 Pulse Oximetry 98 01/29/24 18:19 Oxygen Delivery Room Air 01/29/24 18:19 Temperature 97.5 F L 01/29/24 18:19 Pulse Rate 64 01/29/24 21:11 Respiratory Rate 18 01/29/24 21:11 Blood Pressure 146/78 H 01/29/24 21:11 Pulse Oximetry 98 01/29/24 21:11 Oxygen Delivery Room Air 01/29/24 18:19 MDM - Back Pain/Injury MDM Narrative Medical decision making narrative: Patient presents the emergency department for left-si
[2024-01-29 21:11] VITALS: BP 146/78; PULSE 64; RESP 18; O2SAT 98
== END 2024-01-29 21:14 | disposition home or self-care (01) ==
PROVIDERS: Emergency Provider Physician Assistant; PCP Student in an Organized Health Care Education/Training Program
DX: M51.36 Other intervertebral disc degeneration, lumbar region (principal); M48.061 Spinal stenosis, lumbar region without neurogenic claudication
CPT/HCPCS: 72131; 99284

== ENCOUNTER 2024-03-10 03:26 | Observation (INO) | payer OTHER, SELFPAY ==
--- NOTE | ~2024-03-10 | MR_ITS ---
EXAMINATION: MR lumbar spine wo/w con, MR sacrum wo/w con DATE: 03/13/2024 09:34 INDICATION: Back pain TECHNIQUE: 1. Magnetic resonance imaging (MRI) of the lumbar spine was performed without and with 20 mL Multihan ce intravenous contrast. Sequences included sagittal T2-weighted FSE, sagittal T2-weighted FS FSE, an d sagittal and axial T1-weighted FSE. Postcontrast sequences included axial T2-weighted FSE, sagittal T1-weighted FSE, and axial and sagittal T1-weighted FS FSE. 2. MRI of the sacrum was performed without and with identical 20 mL MultiHance intravenous contrast b olus. Sequences included sagittal PD-weighted FS FSE, oblique axial and coronal T1-weighted FSE and T 2-weighted FS FSE, oblique coronal T2-weighted FSE, oblique axial T1-weighted FS FSE and postcontrast oblique axial and coronal T1-weighted FS FSE. COMPARISON: Lumbar spine CT dated 01/29/2024 FINDINGS: Lumbar spine: 1 mm retrolisthesis L2 on L3. Chronic mild likely physiologic anterior wedging at T11 and T12. There are Schmorl's nodes along the inferior endplates of L1 and L2 and the superior endplates of L4 and L5 . Minimal fibrovascular degenerative endplate changes along both sides of the left anterior L1-L2 dis c space. Marrow signal is otherwise unremarkable. Moderate disc height loss at L1-L2 and mild disc he ight loss at T11-T12, the right side of L2-L3 and L3-L4 and left side of L4-L5. The conus medullaris terminates at L1. There is normal signal in the caudal spinal cord. Paravertebral soft tissues are un remarkable. Mild synovial enhancement at a few of the lower lumbar facet joints. Also mild enhancemen t in the left psoas muscle along the margins of prominent left-sided endplate osteophytes at L1-L2. N o other abnormally enhancing lesions identified. The following disc levels are specifically discussed : T12-L1: The disc does not extend beyond the endplate margin. There is mild bilateral facet joint oste oarthritis. There is no neural foraminal stenosis. There is no central canal stenosis. L1-L2: Disc is mildly bulging. There is mild bilateral facet joint osteoarthritis. There is mild bila teral neural foraminal stenosis. There is mild central canal stenosis. L2-L3: Disc is minimally bulging with small bilateral foraminal zone disc protrusions. There is mild bilateral facet joint osteoarthritis. There is moderate right and mild to moderate left neural forami nal stenosis. There is minimal central canal stenosis. L3-L4: Disc is bulging with superimposed central annular fissure There is mild bilateral facet joint osteoarthritis. There is mild to moderate bilateral neural foraminal stenosis. There is mild central canal stenosis along with mild narrowing of the left and right lateral recesses. L4-L5: Disc is bulging with superimposed annular fissure and small central disc extrusion with disc m aterial extending up to 4 mm caudal to the level of the superior endplate of L5. There is hypertrophy of the ligamentum flavum. There is mild left and moderate right facet joint osteoarthritis. There i s moderate bilateral neural foraminal stenosis. There is mild central canal stenosis with mild narrow ing of the right and moderate narrowing of the left lateral recesses. L5-S1: The disc does not extend beyond the endplate margin. There is hypertrophy of the ligamentum fl avum. There is moderate left and severe right facet joint osteoarthritis. There is mild left and mil d to moderate right neural foraminal stenosis. There is no central canal stenosis. Sacrum and coccyx: There is normal bone marrow signal throughout. No fracture, reactive edema or pathologic marrow repla cing process. There is mild osteoarthritis at the bilateral sacralized joints. No erosions or enhanci ng synovitis to suggest inflammatory sacroiliitis. Sigmoid diverticulosis without adjacent from trace stranding to suggest diverticulitis. The visualized lumbosacral plexus appea
[2024-03-10 03:22] VITALS: BP 161/92; PULSE 68; RESP 20; TEMP 36.8; O2SAT 100
[2024-03-10] MEDS: HYDROcodone/acetaminophen (*CRX) 10-325 MG TABLET 1 TAB PO (03:43)
--- NOTE | 2024-03-10 04:07 | ED.BACK ---
HPI - Back Pain/Injury General Chief Complaint: Back Pain/Injury Stated Complaint: LOW BACK PAIN & LEFT LEG PAIN History of Present Illness HPI Narrative: Patient is a 68-year-old male who presents to the emergency department morning complaining of left sciatic pain. Patient states that he has been struggling with this since January and had CTs and MRIs done since then. Patient has seen a neurosurgeon a few days ago who went over the MRI results with him and told him that the MRI imaging or poor quality and he could not really tell what was causing his pain. Patient did bring the MRI report with him which revealed multilevel foraminal stenosis. Patient also had a CT scan of his lumbar spine performed prior to that in our emergency department in January which revealed [id number] lumbar spondylosis. Patient states that he has been in this pain since January that has been progressively getting worse and yesterday he could barely walk secondary to the pain. Patient states that he has tried everything, including ibuprofen, Tylenol, Lidoderm patches, Toradol, heating and icing packs and just finished a course of steroids and states that nothing is touching the pain. Denies any abdominal pain, any urinary symptoms including dysuria or hematuria. Patient also denies any recent falls or trauma and any heavy lifting since this pain started. Patient states that the pain originates in his left sacral region and radiates down to his left mid thigh. Patient is laying flat as this is the best position for him and that sitting up his excruciating for him. Related Data Home Medications Medication Instructions Recorded Confirmed omeprazole magnesium 20 mg 20 mg PO HS 05/06/23 05/30/23 tablet,delayed release (Prilosec OTC) Allergies Allergy/AdvReac Type Severity Reaction Status Date / Time [id number] Reductase Allergy Unknown Verified 03/10/24 03:40 Inhibitor FENOFIBRATE NANOCRYSTALLIZED Allergy Mild SWELLING Uncoded 01/29/24 18:32 MOUTH FENOFIBRATE,MICRONIZED Allergy Mild SWELLING Uncoded 01/29/24 18:32 MOUTH Review of Systems Review of Systems: All systems are reviewed and are negative unless stated otherwise in the HPI. [facility] Past Medical History Medical History No active medical problems Surgical History Surgical History History of arthroplasty of left knee Hx laparoscopic cholecystectomy Hx of tonsillectomy (Unknown) Family History Family History Father Skin cancer Hypertension Mother Breast cancer Diabetes mellitus Heart disease Social History Social History Social History: patient lives in a house with his . He has 3 kids and 4 grandkids. He admits to drinking occasionally. Denies history of tobacco use or drug use. Smoking status: Never smoker Alcohol intake: current Drinks per week: 1 Substance use: never Lack of Transportation: No Lack of Food: Never True Current Housing: I Have Housing Concerned About Future Housing: No Difficulty Paying Gas/Electric Bills: No Difficulty Paying for Meds: No Currently Unemployed: No Education: Master's Degree or Higher Difficulty w/ Childcare or Family Care: No Gender identity (if verbalized by the patient): Male Spiritual care concerns: No Exam Narrative: General: Alert, awake, afebrile, in no acute distress. HEENT: PERRL, no rhinorrhea, no post nasal drip, oropharynx clear. Cardiovascular: Regular rate and rhythm, no murmurs, rubs or gallops, no peripheral edema. Respiratory: Clear to auscultation bilaterally, no tachypnea, no wheezing, no rhonchi, no rubs, no respiratory distress. Abdomen: Soft, nontender, nondistended, no rebound, no guarding, no peritoneal signs. Musculoskeletal: No isabelle
[2024-03-10] MEDS: HYDROmorphone HCL INJ (*CRX) 1 MG/ML SYR IV PUSH (05:03)
[2024-03-10 05:48] VITALS: BP 135/75; PULSE 65; RESP 18; O2SAT 97
[2024-03-10] MEDS: ONDANSETRON INJ 4 MG/2 ML VIAL IV PUSH (06:10)
[2024-03-10 06:55] VITALS: BP 152/82; PULSE 75; RESP 14; O2SAT 98
[2024-03-10 06:58] LABS: Basophils Absolute Auto 0.1 K/mm3 (0.0-0.1); Basophils Percent Auto 0.3 % (0.2-1.2); Eosinophils Percent Auto 0.3 % (0-4.4); Hemoglobin 16.6 g/dL (14.0-18.0); Immature Granulocyte Absolute 0.06 K/mm3 (0.00-0.031); Immature Granulocyte Percent A 0.4 % (0-0.5); Lymphocytes Absolute Auto 1.37 K/mm3 (0.9-3.2); Lymphocytes Percent Auto 8.9 % (18.3-44.2); Mean Corpuscular HGB Conc 35.3 g/dl (32-36); Mean Corpuscular Hemoglobin 31.9 pg (26-34); Mean Corpuscular Volume 90.2 fl (80-100); Mean Platelet Volume 9.8 fl (7.4-10.4); Monocytes Absolute Auto 1.3 K/mm3 (0.1-0.6); Monocytes Percent Auto 8.5 % (2.6-8.5); Neutrophils Absolute Auto 12.5 K/mm3 (1.3-6.7); Neutrophils Percent Auto 81.6 % (45.5-73.1); Platelet Count Result 207 k/mm3 (150-375); Red Blood Count 5.21 M/mm3 (4.6-6.20); Red Cell Distribution Width 12.3 % (11.5-14.5); White Blood Count 15.3 K/mm3 (4.5-10.0)
[2024-03-10 07:10] LABS: Alanine Aminotransferase 58 U/L (6-50); Albumin Level 3.8 g/dL (3.5-5.1); Alkaline Phosphatase 90 U/L (38-126); Anion Gap 10 mmol/L (4-12); Aspartate Amino Transferase 28 U/L (17-59); Bilirubin,Total 2.1 mg/dL (0.2-1.3); Blood Urea Nitrogen 20 mg/dL (9-20); Calcium 9.2 mg/dL (8.4-10.2); Carbon Dioxide 21 mmol/L (22-30); Chloride 104 mmol/L (98-107); Estimated CRCL calculation 104 ml/min; Estimated Glomerular Filt Rate > 60; Glucose 141 mg/dL (65-110); Potassium 3.7 mmol/L (3.4-5.0); Sodium 135 mmol/L (137-145)
[2024-03-10 08:46] VITALS: BP 143/99; PULSE 78; RESP 16; TEMP 36.6; O2SAT 98
--- NOTE | 2024-03-10 08:50 | PC.NURSE ---
This patient, Mannie Lancaster, was admitted to [facility] Surg Room 328-01 at 0850. Patient/family oriented to hospital policies and general routines including ID bracelet, bed and alarms, visiting hours, pain management, procedures, bathroom and other care routines, personal items, smoking policy, room service/diet, and visiting hours. Information on how to activate the Rapid Response Team has been discussed. Patient/Family are encouraged to report perceived risks to care and to ask questions if they do not understand what they are told or what they should do.
--- NOTE | 2024-03-10 09:35 | PM.IMHP ---
H&P: HPI History of Present Illness Date/Time: 03/10/24 09:35 Chief Complaint: back pain/leg pain Narrative: HPI Narrative: 68-year-old male with who presents to the emergency department morning complaining of left sciatic pain. Patient states that he has been struggling with this since January. 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 He doesnot recall any trauma or injury. He didnot travel anywhere and was not in the mera/jungle anywhere. He had CT and was told it was arthritis He was referred to neurosurgeon- but the soonest denia would be in May. Then his PCP referred him to pain clinic where he received nerve block x two with no pain relief. He then was able to get in with a neurosurgeon Dr Roderick Zelaya- who ordered MRI. He had a follow up with him few days ago who went over the MRI results with him and told him that the MRI imaging or poor quality and he could not really tell what was causing his pain. Patient did bring the MRI report with him which revealed multilevel foraminal stenosis. Patient also had a CT scan of his lumbar spine performed prior to that in our emergency department in January which revealed [id number] lumbar spondylosis. He was referred to another pain clinic- he has upcoming denia this and a repeat MRI next Tuesday. Patient states that he has tried everything, including ibuprofen, Tylenol, Lidoderm patches, Toradol, heating and icing packs and just finished a course of steroids (total had two courses with no relief) and states that nothing is touching the pain. Denies any abdominal pain, any urinary symptoms including dysuria or hematuria. Patient also denies any recent falls or trauma and any heavy lifting since this pain started. Patient states that the pain originates in his left sacral region and radiates down to his left mid thigh. Patient is laying flat as this is the best position for him and that sitting up his excruciating for him. He denies any medical history Had arthroplasty lt knee in 1985, gallbladder surgery, tonsillectomy. Doesnot smoke, has maybe 1alsoholic drink a month if that, doesn't take ant drugs. Review of Systems Review of Systems: All systems reviewed & are unremarkable except as noted in HPI and below (h/p) [facility] Past Medical History Medical History No active medical problems Surgical History Surgical History History of arthroplasty of left knee Hx laparoscopic cholecystectomy Hx of tonsillectomy (Unknown) Family History Family History (Updated 03/10/24 @ 09:43 by Stefanie Velez LPN) Father Skin cancer Hypertension Mother Diabetes mellitus Heart disease Breast cancer Pancreatitis Social History Social History Social History: patient lives in a house with his . He has 3 kids and 4 grandkids. He admits to drinking occasionally. Denies history of tobacco use or drug use. Smoking status: Never smoker Second hand tobacco smoke exposure: No Alcohol intake: current Drinks per week: 1 Substance use: never Do You Feel Safe in your Home?: Yes Lack of Transportation: No Lack of Food: Never True Current Housing: I Have Housing Concerned About Future Housing: No Difficulty Paying Gas/Electric Bills: No Difficulty Paying for Meds: No Currently Unemployed: No Education: Master's Degree or Higher Difficulty w/ Childcare or Family Care: No Gender identity (if verbalized by the patient): Male Spiritual care concerns: No Meds Home Medications and Allergies Home Medications Medication Instructions Recorded Confirmed Type omeprazole magnesium 20 mg 20 mg PO HS 05/06/23 03/10/24 History tablet,delayed release (Prilosec OTC) gabapentin 100 mg capsule 100 mg PO TID 03/10/24 03/10/24 History tramadol 50 mg tablet 50 mg PO Q8H PRN
[2024-03-10 09:39] VITALS: BMI 33.9
[2024-03-10] MEDS: KETOROLAC 30 MG/ML VIAL (*BKC) IV PUSH ×2 (10:29→18:45)
[2024-03-10] MEDS: LIDOCAINE 5% PATCH 1 PATCH TRANSDERM (12:56)
[2024-03-10] MEDS: CALCIUM CARBONATE (TUMS) 500 MG (200 MG ELEMENTAL) PO (13:46)
[2024-03-10 14:00] VITALS: BP 130/83; PULSE 74; RESP 16; TEMP 36.9; O2SAT 99
[2024-03-10 14:44] LABS: Appearance Urine Clear (Clear); Color Urine Yellow (Yellow)
[2024-03-10 14:46] LABS: Glucose Urine UA Negative (Negative); Protein Urine 1+ mg/dL (Negative); Specific Grav Ur 1.015 (1.001-1.035)
[2024-03-10 14:47] LABS: Bilirubin Urine 1+ (Negative); Blood Urine Negative (Negative); Ketones Urine 3+ mg/dL (Negative); Nitrate Urine Negative (Negative)
[2024-03-10 14:48] LABS: Add Urine Microscopic? YES; Leukocyte Esterase Ur Trace LEU/UL (Negative)
[2024-03-10 14:49] LABS: RBC Urine None seen /hpf (0-2)
[2024-03-10 14:50] LABS: WBC Urine 0-3 /hpf (0-3)
[2024-03-10 14:51] LABS: Bacteria Urine Trace /hpf; Squamous Epithelial Cell Urine Rare /hpf (Few)
[2024-03-10] MEDS: ONDANSETRON HCL ODT 4 MG TABLET PO (17:00)
[2024-03-10] MEDS: dexAMETHasone SOD PHOS INJ 4 MG/ML VIAL IV PUSH (17:28)
--- NOTE | 2024-03-10 17:33 | PC.NURSE ---
On 03/10/24, the BUSINESS PARTNER, Stefanie Velez, provided care and completed [facility] documentation on this patient. I have reviewed the BUSINESS PARTNER's documentation and agree with the findings.
[2024-03-10] MEDS: PANTOPRAZOLE 40 MG TABLET PO (20:57)
[2024-03-10 21:23] VITALS: BP 142/68; PULSE 62; RESP 16; TEMP 36.4; O2SAT 98
[2024-03-11] MEDS: KETOROLAC 30 MG/ML VIAL (*BKC) IV PUSH ×2 (00:11→06:13)
[2024-03-11] MEDS: dexAMETHasone SOD PHOS INJ 4 MG/ML VIAL IV PUSH ×4 (00:11→18:07)
[2024-03-11] MEDS: CALCIUM CARBONATE (TUMS) 500 MG (200 MG ELEMENTAL) PO (00:16)
[2024-03-11 05:33] VITALS: BP 140/78; PULSE 64; RESP 18; TEMP 36.4; O2SAT 98
[2024-03-11 07:13] VITALS: O2SAT 98
[2024-03-11] MEDS: LIDOCAINE 5% PATCH 1 PATCH TRANSDERM (08:32)
[2024-03-11] MEDS: ENOXAPARIN 40 MG/0.4 ML SYRINGE SUB-Q (08:32)
[2024-03-11] MEDS: diazePAM INJ (*CRX) 10 MG/2 ML SYRINGE 5 MG IV PUSH (08:33)
--- NOTE | 2024-03-11 09:24 | PM.IMPN ---
Progress Note: A&P Assessment and Plan (1) Sciatica: Code(s): M54.30 - Sciatica, unspecified side Status: Acute Assessment and Plan: - since JANUARY -no known trauma - following with neurosurgeon- recent CT/MRI- was told poor quality (report revealed multilevel foraminal stenosis) - previous images: [id number] lumbar spondylosis - plan: will consult neurosurgery - pain control: dilaudid 0.5 mg IV, torADOL, zofran prn for nausea - fall precautions - MRI is unavailable this whole weekend 03/11- neurosurgery was consulted yesterday. Decadron was started continue pain management, pt/ot (2) Lumbar spondylosis: Code(s): M47.816 - Spondylosis without myelopathy or radiculopathy, lumbar region Status: Acute Assessment and Plan: see above (3) Back pain: Code(s): M54.9 - Dorsalgia, unspecified Status: Acute Assessment and Plan: see above Time Spent With Patient Time with patient: Greater than 35 minutes Subjective Date/time seen: 03/11/24 09:24 Interval history: back pain/leg pain Narrative: HPI Narrative: 68-year-old male with who presents to the emergency department morning complaining of left sciatic pain. Patient states that he has been struggling with this since January. 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 He doesnot recall any trauma or injury. He didnot travel anywhere and was not in the mera/jungle anywhere. He had CT and was told it was arthritis He was referred to neurosurgeon- but the soonest denia would be in May. Then his PCP referred him to pain clinic where he received nerve block x two with no pain relief. He then was able to get in with a neurosurgeon Dr Roderick Zelaya- who ordered MRI. He had a follow up with him few days ago who went over the MRI results with him and told him that the MRI imaging or poor quality and he could not really tell what was causing his pain. Patient did bring the MRI report with him which revealed multilevel foraminal stenosis. Patient also had a CT scan of his lumbar spine performed prior to that in our emergency department in January which revealed uflv-it-cfbvrswl lumbar spondylosis. He was referred to another pain clinic- he has upcoming denia this and a repeat MRI next Tuesday. Patient states that he has tried everything, including ibuprofen, Tylenol, Lidoderm patches, Toradol, heating and icing packs and just finished a course of steroids (total had two courses with no relief) and states that nothing is touching the pain. Denies any abdominal pain, any urinary symptoms including dysuria or hematuria. Patient also denies any recent falls or trauma and any heavy lifting since this pain started. Patient states that the pain originates in his left sacral region and radiates down to his left mid thigh. Patient is laying flat as this is the best position for him and that sitting up his excruciating for him. He denies any medical history Had arthroplasty lt knee in 1985, gallbladder surgery, tonsillectomy. Doesnot smoke, has maybe 1alsoholic drink a month if that, doesn't take any drugs. 03/11- neurosurgery was consulted yesterday. decadron was started. Pain is somewhat better but still having a lot of issues when siting up right. Review of Systems Review of Systems: All systems reviewed & are unremarkable except as noted in HPI and below (h/p) Exam Const: Other: comfortable when laying flat Resp: Effort & Inspection: normal respiratory effort Cardio: Rate: regular rate Rhythm: regular rhythm Skin: General skin exam: normal color Extrem: Other: back pain when raising left leg sensation intact Psych: Mental Status: mental status grossly normal Objective Data Vital Signs Vital Signs: Vital Signs - 24 hr 03/10/24 14:00 03/10/24 21:23 03/11/24 05:33 Temperature 98.5 F 97.6 F 97.6 F Pulse Rate 74 62 64 Respiratory Rate 16 16 18 Blood Pressure 130/83 142/68 H 140/78 Pulse Oximetry
[2024-03-11] MEDS: HYDROcodone/acetaminophen (*CRX) 5-325 MG TABLET 1 TAB PO ×2 (12:45→21:07)
[2024-03-11 13:58] VITALS: BP 133/87; PULSE 89; RESP 20; TEMP 36.4; O2SAT 96
[2024-03-11] MEDS: PANTOPRAZOLE 40 MG TABLET PO (21:08)
[2024-03-11] MEDS: CYCLOBENZAPRINE HCL 10 MG TABLET PO (21:08)
[2024-03-11 22:00] VITALS: BP 130/84; PULSE 73; RESP 16; TEMP 36.4; O2SAT 97
[2024-03-12] MEDS: dexAMETHasone SOD PHOS INJ 4 MG/ML VIAL IV PUSH ×4 (00:21→17:26)
[2024-03-12 05:21] VITALS: BP 126/80; PULSE 59; RESP 16; TEMP 36.4; O2SAT 99
[2024-03-12] MEDS: CYCLOBENZAPRINE HCL 10 MG TABLET PO ×2 (05:59→20:39)
--- NOTE | 2024-03-12 07:46 | PM.IMPN ---
Progress Note: A&P Assessment and Plan (1) Sciatica: Code(s): M54.30 - Sciatica, unspecified side Status: Acute Assessment and Plan: - since JANUARY -no known trauma - following with neurosurgeon- recent CT/MRI- was told poor quality (report revealed multilevel foraminal stenosis) - previous images: [id number]-[id number] lumbar spondylosis - plan: will consult neurosurgery - pain control: dilaudid 0.5 mg IV, torADOL, zofran prn for nausea - fall precautions - MRI is unavailable this whole weekend 03/11- neurosurgery was consulted yesterday. Decadron was started continue pain management, pt/ot - repeat mri - available monday 03/12- pain is better controlled continue decadron and pain regimen (2) Lumbar spondylosis: Code(s): M47.816 - Spondylosis without myelopathy or radiculopathy, lumbar region Status: Acute Assessment and Plan: see above (3) Back pain: Code(s): M54.9 - Dorsalgia, unspecified Status: Acute Assessment and Plan: see above Time Spent With Patient Time with patient: Greater than 35 minutes Subjective Date/time seen: 03/12/24 07:46 Interval history: back pain/leg pain Narrative: HPI Narrative: 68-year-old male with who presents to the emergency department morning complaining of left sciatic pain. Patient states that he has been struggling with this since January. 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 He doesnot recall any trauma or injury. He didnot travel anywhere and was not in the mera/jungle anywhere. He had CT and was told it was arthritis He was referred to neurosurgeon- but the soonest denia would be in May. Then his PCP referred him to pain clinic where he received nerve block x two with no pain relief. He then was able to get in with a neurosurgeon Dr Roderick Zelaya- who ordered MRI. He had a follow up with him few days ago who went over the MRI results with him and told him that the MRI imaging or poor quality and he could not really tell what was causing his pain. Patient did bring the MRI report with him which revealed multilevel foraminal stenosis. Patient also had a CT scan of his lumbar spine performed prior to that in our emergency department in January which revealed [id number] lumbar spondylosis. He was referred to another pain clinic- he has upcoming denia this and a repeat MRI next Tuesday. Patient states that he has tried everything, including ibuprofen, Tylenol, Lidoderm patches, Toradol, heating and icing packs and just finished a course of steroids (total had two courses with no relief) and states that nothing is touching the pain. Denies any abdominal pain, any urinary symptoms including dysuria or hematuria. Patient also denies any recent falls or trauma and any heavy lifting since this pain started. Patient states that the pain originates in his left sacral region and radiates down to his left mid thigh. Patient is laying flat as this is the best position for him and that sitting up his excruciating for him. He denies any medical history Had arthroplasty lt knee in 1985, gallbladder surgery, tonsillectomy. Doesnot smoke, has maybe 1alsoholic drink a month if that, doesn't take any drugs. 03/11- neurosurgery was consulted yesterday. decadron was started. Pain is somewhat better but still having a lot of issues when siting up right. 03/12- seen and examined. PT/OT ordered. He reports pain is better, he was able to shower today. will do MRI tomorrow. Decadron and pain meds- tryt o avoid IV pain meds Review of Systems Review of Systems: All systems reviewed & are unremarkable except as noted in HPI and below (h/p) Exam Const: Other: comfortable when laying flat Resp: Effort & Inspection: normal respiratory effort Cardio: Rate: regular rate Rhythm: regular rhythm Skin: General skin exam: normal color Extrem: Other: back pain when raising left leg sensation intact Psych: Mental Status: mental st
[2024-03-12] MEDS: ENOXAPARIN 40 MG/0.4 ML SYRINGE SUB-Q (09:04)
[2024-03-12] MEDS: LIDOCAINE 5% PATCH 1 PATCH TRANSDERM (09:05)
[2024-03-12 14:00] VITALS: BP 128/79; PULSE 70; RESP 16; TEMP 36.3; O2SAT 97
[2024-03-12] MEDS: PANTOPRAZOLE 40 MG TABLET PO (20:38)
[2024-03-12] MEDS: HYDROcodone/acetaminophen (*CRX) 5-325 MG TABLET 1 TAB PO (20:38)
[2024-03-12 20:59] VITALS: BP 120/78; PULSE 58; RESP 12; TEMP 36.3; O2SAT 95
[2024-03-13] MEDS: dexAMETHasone SOD PHOS INJ 4 MG/ML VIAL IV PUSH ×3 (00:03→11:54)
[2024-03-13 05:53] VITALS: BP 147/81; PULSE 57; RESP 14; TEMP 36.7; O2SAT 97
[2024-03-13] MEDS: ENOXAPARIN 40 MG/0.4 ML SYRINGE SUB-Q (08:07)
[2024-03-13] MEDS: LIDOCAINE 5% PATCH 1 PATCH TRANSDERM (08:07)
[2024-03-13] MEDS: LORazepam INJ (*CRX) 2 MG/ML VIAL 0.5 MG IV PUSH (08:29)
--- NOTE | 2024-03-13 11:36 | PM.DS ---
DS: Admitting Diagnosis Discharge Date t Admitting Diagnosis back pain DS: Discharge Diagnosis Discharge Diagnosis (1) Sciatica: Code(s): M54.30 - Sciatica, unspecified side Status: Acute Assessment and Plan: - since JANUARY -no known trauma - following with neurosurgeon- recent CT/MRI- was told poor quality (report revealed multilevel foraminal stenosis) - previous images: [id number] lumbar spondylosis - plan: will consult neurosurgery - pain control: dilaudid 0.5 mg IV, torADOL, zofran prn for nausea - fall precautions - MRI is unavailable this whole weekend 03/11- neurosurgery was consulted yesterday. Decadron was started continue pain management, pt/ot - repeat mri - available monday 03/12- pain is better controlled continue decadron and pain regimen (2) Lumbar spondylosis: Code(s): M47.816 - Spondylosis without myelopathy or radiculopathy, lumbar region Status: Acute Assessment and Plan: see above (3) Back pain: Code(s): M54.9 - Dorsalgia, unspecified Status: Acute Assessment and Plan: see above Plan final dx:Lumbar radiculopathy DS: Summary Hospital Course Hospital Course: HPI Narrative: 68-year-old male with who presents to the emergency department morning complaining of left sciatic pain. Patient states that he has been struggling with this since January. 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 He doesnot recall any trauma or injury. He didnot travel anywhere and was not in the mera/jungle anywhere. He had CT and was told it was arthritis He was referred to neurosurgeon- but the soonest denia would be in May. Then his PCP referred him to pain clinic where he received nerve block x two with no pain relief. He then was able to get in with a neurosurgeon Dr Roderick Zelaya- who ordered MRI. He had a follow up with him few days ago who went over the MRI results with him and told him that the MRI imaging or poor quality and he could not really tell what was causing his pain. Patient did bring the MRI report with him which revealed multilevel foraminal stenosis. Patient also had a CT scan of his lumbar spine performed prior to that in our emergency department in January which revealed jrlv-eo-wxzrawjl lumbar spondylosis. He was referred to another pain clinic- he has upcoming denia this and a repeat MRI next Tuesday. Patient states that he has tried everything, including ibuprofen, Tylenol, Lidoderm patches, Toradol, heating and icing packs and just finished a course of steroids (total had two courses with no relief) and states that nothing is touching the pain. Denies any abdominal pain, any urinary symptoms including dysuria or hematuria. Patient also denies any recent falls or trauma and any heavy lifting since this pain started. Patient states that the pain originates in his left sacral region and radiates down to his left mid thigh. Patient is laying flat as this is the best position for him and that sitting up his excruciating for him. He denies any medical history Had arthroplasty lt knee in 1985, gallbladder surgery, tonsillectomy. Doesnot smoke, has maybe 1alsoholic drink a month if that, doesn't take any drugs. 03/11- neurosurgery was consulted yesterday. decadron was started. Pain is somewhat better but still having a lot of issues when siting up right. 03/12- seen and examined. PT/OT ordered. He reports pain is better, he was able to shower today. will do MRI tomorrow. Decadron and pain meds- try to avoid IV pain meds 03/13- doing better today. MRI done. Will ensure pt has disck with him. He has a new pain mngm denia tomorrow. feels like pain is steady and under control to go home. Status at Discharge Functional status at discharge: independent ambulation Overall status at discharge: patient is progressing back to baseline Time Spent with Patient Time attestation: Total time spent providing and/or coordinating discharge services: Time spe
[2024-03-13 12:07] LABS: Hematocrit 46.6 % (42.0-52.0); Mean Corpuscular HGB Conc 34.3 g/dl (32-36); Mean Corpuscular Hemoglobin 31.4 pg (26-34); Mean Corpuscular Volume 91.6 fl (80-100); Mean Platelet Volume 10.2 fl (7.4-10.4); Platelet Count Result 223 k/mm3 (150-375); Red Blood Count 5.09 M/mm3 (4.6-6.20); Red Cell Distribution Width 12.2 % (11.5-14.5); White Blood Count 16.3 K/mm3 (4.5-10.0)
[2024-03-13 12:24] LABS: Anion Gap 9 mmol/L (4-12); Blood Urea Nitrogen 32 mg/dL (9-20); Calcium 9.5 mg/dL (8.4-10.2); Carbon Dioxide 27 mmol/L (22-30); Chloride 101 mmol/L (98-107); Estimated CRCL calculation 74 ml/min; Estimated Glomerular Filt Rate > 60; Glucose 182 mg/dL (65-110); Sodium 137 mmol/L (137-145)
[2024-03-13 14:00] VITALS: BP 126/79; PULSE 76; RESP 20; TEMP 35.8; O2SAT 97
== END 2024-03-13 16:25 | disposition home or self-care (01) ==
LOC: ANHED 07:35 → ANH3MEDSUR 08:46
PROVIDERS: Nurse Practitioner; Admitting Provider Internal Medicine; Emergency Provider Emergency Medicine; PCP Student in an Organized Health Care Education/Training Program; Visit Provider Internal Medicine
DX: M54.30 Sciatica, unspecified side (principal); M47.26 Other spondylosis with radiculopathy, lumbar region
CPT/HCPCS: 36415; 72158; 72197; 80048; 80053; 81001; 85025; 85027; 96372; 96374; 96375; 96376; 97161; 97165; 97535; 99285; A9270; A9577; G0378; J1100; J1170; J1650; J1885; J2060; J2405; J3360

== ENCOUNTER 2024-05-31 16:30 | Outpatient (RCR) | payer OTHER, SELFPAY ==
--- NOTE | 2024-05-03 17:33 | OPREHPOC ---
Outpatient Therapy Plan of Care This is a Multidisciplinary Plan of Care that may contain components documented by all disciplines (PT, OT, and ST.) PT Problem 1 PT Problem #1 Knowledge Deficit PT Goal 1 Goal / Goal Update [place] with HEP Target Visit 4 PT Problem 2 PT Problem #2 Pain PT Goal 1 Goal / Goal Update Report no pain greater than 2/10 with ambulation activity Target Visit 8 PT Problem 3 PT Problem #3 Impaired Range of Motion PT Goal 1 Goal / Goal Update Demonstrate hip abdcution ROM of 40+ degrees heladio to reduce capsular limitation in heladio hips. Target Visit 8 PT Goal 2 Goal / Goal Update Demonstrate -30 degrees or better in HS 90/90 test to reduce posterior kinematic chain pull Target Visit 8 PT Problem 4 PT Problem #4 Impaired Gait PT Goal 1 Goal / Goal Update Patient will ambulate with even stride length bilaterally to reduce lumbar compression with ambulation activity Target Visit 8 PT Goal 2 Goal / Goal Update Improve heladio hip abduction strength to 4+/5 to improve lateral stability for gait and squatting activity. Target Visit 8
--- NOTE | 2024-05-03 17:33 | PTOPEVAL1 ---
Assessment and note entered by Edmundo Smith, PT Evaluation Information Assessment Status Evaluation ICD-10 Condition Codes (PT) Pain in low back M54.50 Onset January 2024 Subjective Information Reports that pain has been very bad for the latter half of the summer. He had IV steroid and injections and has been followed up by pain management. Occasionally taking naproxen in the AM 1 per day. He is still having decent days an bad day. Reports that he had an inflamed nerve nerve that reacted to steroid use. He is currently avoiding lifting heavy weights out of apprehension . He has some discomfort with riding and sitting. He is nervous working in the yard at this time. Feels that his back is weak and he has not worked in the yard or golSchoolwires since January. All of his pain is on the lateral hip and never in the groin. Still working and spends a lot of time sitting. Reported Pain Level Pain Score 1: Self Report Assessment PT Clinical Summary Patient presents with signs and symptoms consistent with lumbar stenosis and degenerative disc disease. Patient demonstrates spinal compensations for loss of hip mobility and strength resulting in increased pain in lumbar spine with functional activity. 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 Plan of Care Interventions Electrical Stimulation,Hot Pack/Cold Pack,Manual Therapy,Neuro Re-education,Therapeutic Activities, Therapeutic Exercise PT Services Indicated Yes Treatment Frequency and 2x/week for 8 visits Duration These treatments will address the objective and functional deficits as defined above. The patient will be advanced safely and appropriately in order for the patient to progress towards his/her prior level of function. Additional exercises will be introduced and as well as a comprehensive home exercise program upon discharge, if needed, ?to ensure carryover of functional gains achieved in the clinic. This treatment plan has been reviewed and agreement upon by the patient.
--- NOTE | 2024-05-31 17:22 | PTOPDC ---
Assessment and note entered by Edmundo Smith, PT Evaluation Information Assessment Status Discharge ICD-10 Condition Codes (PT) Pain in low back M54.50 Onset January 2024 Subjective Information Patient reports that overall he is doing better. He has been consistent with HEP and has no concerns at this time. Occasional pain but is managed. 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 Plan of Care PT Services Indicated Yes
== END 2024-06-01 14:10 | disposition home or self-care (01) ==
LOC: ANHPT 16:30
PROVIDERS: PCP Student in an Organized Health Care Education/Training Program; Visit Provider Anesthesiology
DX: M54.16 Radiculopathy, lumbar region (principal)
CPT/HCPCS: 97110; 97140; 97161; 97530

== ENCOUNTER 2025-04-05 12:46 | Outpatient (CLI) | payer OTHER, SELFPAY ==
--- OUTSIDE RECORDS SUMMARY | 2025-03-05 02:45 | XMS_ITS ---
Author Organization [facility] Address [address] [place] [address] [place] [address] Care Team Providers Care Hand Packager Name Role Phone TRENTON CARMEN DO Primary Care Provider Adele pollockJerman Aggarwal Unavailable [phone] MD KARL, BENITO Unavailable Unavailable ALLERGIES Allergen (clinical drug ingredient) Drug/Non Drug Allergy documented on EMR Reaction Allergy Type Onset Date Status fenofibrate Fenofibrate swelling Drug Allergy Act abundio Substance with 2-nrekqtv-6-methylgluta ryl-coenzyme A reductase inhibitor mechanism of action (substance) Statins swelling Drug Allergy Active REASON FOR VISIT Follow Up, Left > Right Low Back Pain MEDICATIONS Medication SIG (Take, Route, Fr equency, Duration) Notes Start Date End Date Status Xanax 0.25 MG 1-2 tablets Orally 3 0 minutes prior to injection 01/29/2025 Activ e Naproxen 500 MG take 1 tablet by annalee th twice daily as needed for 15 days. take on a full stomach or with an antacid Oral once daily for 15 days Active methylPREDNISolone 4 MG as directed Orally Active Gabapentin 100 MG Oral for 30 Active SOCIAL HISTORY Tobacco Use: Social History Observation Description Date Details (start date - stop date) Never Smoker NA - NA Sex Assigned At : Social History Observation Description Sex Assigned At Unknown Tobacco Use/Smoking Question Answer Notes Are you a nonsmoker Alcohol Screen (Audit-C) Question Answer Notes Did you have a drink containing alcohol in the p ast year? 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 The patient denies tobacco, alcohol, or illicit drug abuse. VITAL SIGNS Blood pressure systolic 132 mm Hg 03/05/20 25 Blood pressure diastolic 89 mm Hg 025 Heart Rate 69 /min 03/05/2025 Respiratory Rate 16 /min 03/05/2025 Height 5 ft 9 in in 03/05/2025 Weight 248 lbs 03/05/2025 BMI 36.62 kg/m2 03/05/2025 Encounters Encounter Location Date Provider Diagnosis [facility] [address] [facility] [place] [address] 03/05/2025 Jerman Pacheco Spondylosis without myelopathy or radiculopathy, lumbar region M47.816 ; Lumbar radiculopathy M54.16 ; Spondylosis without myelopathy or radiculopathy, lumbosacral region M47.817 ; Sacroiliitis, not elsewhere classified M46.1 and jail (current) use of non-steroidal anti-inflammatories (NSAID) Z79.1 ASSESSMENTS Encounter Date Diagnosis Assessment Notes Treatment Notes Treatment Clinical Notes Section Notes 03/05/2025 Spondylosis without myelopathy or radiculopathy, lumbar region (ICD-10 - M47.816) 03/05/2025 Lumbar radiculopathy (ICD-10 - M54.16) Schedule a bilateral L4-5 transforaminal epidural steroid injection. The risks of this procedure including pain, bleeding, infection, spinal headache, persistent spinal fluid leak, epidural hematoma, nerve damage, spinal cord injury, paralysis, total spinal anesthesia resulting in cardiopulmonary arrest/, respiratory distress requiring intubation, insomnia, hyperglycemia, hair loss, muscle atrophy, skin depigmentation, weight gain, fluid retention, adrenal suppression, immunosuppression, osteoporosis resulting in fractures, avascular necrosis of the hip, cataracts, bleeding gastric ulcer, worsening pain and failure to relieve pain were discussed and the patient is agreeable to proceeding at this time. 03/05/2025 Spondylosis without myelopathy or radiculopathy, lumbosacral region (ICD-10 - M47.817) 03/05/2025 Sacroiliitis, not elsewhere classified (ICD-10 - M46.1) 03/05/2025 jail (current) use of non-steroidal anti-inflammatori es (NSAID) (ICD-10 - Z79.1) Patient was instructed to hold NSAIDs for 4 days prior to their procedure. Patient verbalized understanding. 03/05/2025 Other The above-named patient was evaluated in conjunction with Dr. Pacheco. I have discussed and reviewed all of the pertinent history, physical examination findings and diagnostic imaging results with him. As a result of our discussion, Dr. Pacheco has determined the above assessment and directed the treatment plan. This note was dictated using voice recognition software and therefore inadvertent errors may have occurred. This note was dictated by THAI Wren. Total Time Spent with Patient and Medical Decision Makin minutes PLAN OF TREATMENT Treatment Notes Assessment Notes Lumbar radiculopathy Schedule a bilatera l L4-5 transforaminal epidural steroid injection. The risks of this procedure including pain, bleeding, infection, spinal headache, persistent spinal fluid leak, epidural hematoma, nerve damage, spinal cord injury, paralysis, total spinal anesthesia resulting in cardiopulmonary arrest/, respiratory distress requiring intubation, insomnia, hyperglycemia, hair loss, muscle atrophy, skin depigmentation, weight gain, fluid retention, adrenal suppression, immunosuppression, osteoporosis resulting in fractures, avascular necrosis of the hip, cataracts, bleeding gastric ulcer, worsening pain and failure to relieve pain were discussed and the patient is agreeable to proceeding at this time. jail (current) use of n on-steroidal anti-inflammatories (NSAID) Patient was instructed to hold NSAIDs fo r 4 days prior to their procedure. Patient verbalized understanding. Other The above-named patient was evaluated in conjunction with Dr. Pacheco. I have discussed and reviewed all of the pertinent history, physical examination findings and diagnostic imaging results with him. As a result of our discussion, Dr. Pacheco has determined the above assessment and directed the treatment plan. This note was dictated using voice recognition software and therefore inadvertent errors may have occurred. This note was dictated by THAI Wren. Total Time Spent with Patient and Medical Decision Makin minutes Next Appt Details Follow Up: bilateral L4-5 TF E, Reason: Provider Name:Jerman Martin west, 04/08/2025 07:45:00 AM, [address] [place], [address], Progress Notes * Examination Category Sub-Category Detail Notes Category Not es Examination/ Pre-Anesthesia Assessment General: The patient is alert and oriented X 3 in moderate distress secondary to pain HEENT: Normocephalic, atrau matic. PERRL. The oropharynx is clear Neck: There is full range of motion of the cervical spine Heart: Regular rate and rhy thm Chest: Clear to auscultatio n bilaterally Abdomen: Soft and benign with normal bowel sounds throughout Musculoskeletal and Extremities: There i s tenderness to palpation over the bilateral L2-3 through L5-S1 facet joints. Extension and lateral rotation of the lumbar spine reproduces the patient's typical axial low back pain. Barry's, [place]'s and [place]'s are positive on the left. There is tenderness to palpation over the left sacroiliac joint and greater trochanter. There is tenderness to palpation over the bilateral lumbar paraspinal muscles Neurological: There is positive st raight leg raising on the left. There are no focal strength deficits in the bilateral upper and lower extremities Skin: Clean, dry and intac t Psychiatric: Mood and affect are normal History and Physical Notes * HPI (History of Present Illness) Category Sub-Category Detail Notes Category Not es Pain Management Radiographic Imaging An MRI lumb ar spine done on 03/10/24 demonstrates DDD and bilateral facet arthropathy at all levels of the lumbar spine. At L1-L2 there is mild central canal and mild bilateral foraminal stenosis. At L2-3 there is central disc bulging and in combination with facet hypertrophy there is moderate right and mild to moderate left foraminal stenosis. At L3-4 there is central disc bulging and an annular fissure. In combination with facet hypertrophy there is mild central canal and mild to moderate bilateral foraminal stenosis. At L4-5 there is central disc bulging with an annular fissure and a small central disc extrusion extending caudad to the level of the superior endplate of L5. In combination with facet and ligament hypertrophy there is mild central canal and moderate bilateral foraminal stenosis. At L5-S1 there is mild left and moderate right foraminal stenosis Assessment and Follow-up: Follow-up Plan hima ambrose:: Yes
--- OUTSIDE RECORDS SUMMARY | 2025-03-15 03:30 | XMS_ITS ---
Author Organization [facility] Address [address] [facility] [place] [address] Care Team Providers Care Drilling Fluids Specialist Name Role Phone TRENTON CARMEN DO Primary Care Provider Adele pollockJerman Aggarwal Unavailable [phone] MD KARL, BENITO Unavailable Unavailable ALLERGIES Allergen (clinical drug ingredient) Drug/Non Drug Allergy documented on EMR Reaction Allergy Type Onset Date Status fenofibrate Fenofibrate swelling Drug Allergy Act abundio Substance with 4-cvvovrm-1-methylgluta ryl-coenzyme A reductase inhibitor mechanism of action (substance) Statins swelling Drug Allergy Active REASON FOR VISIT Left > Right Low Back Pain, Left > Right Lower Extremity Pain MEDICATIONS Medication SIG (Take, Route, Fr equency, Duration) Notes Start Date End Date Status Gabapentin 100 MG Oral for 30 Active methylPREDNISolone 4 MG as directed Orally Active Naproxen 500 MG take 1 tablet by annalee th twice daily as needed for 15 days. take on a full stomach or with an antacid Oral once daily for 15 days Active Xanax 0.25 MG 1-2 tablets Orally 3 0 minutes prior to injection 01/29/2025 Activ e PROBLEMS Problem Type ICD Code Onset Dates Problem Status W/U Status Risk SNOMED Code Notes Problem Radiculopathy, lumbar region (M54.16) Active confirmed Lumbar radiculopathy (416007867) Problem Radiculopathy, lumbosacral region (M54.17) Active confirmed Lumbosacral radiculopathy (6881153) VITAL SIGNS Blood pressure systolic 150 mm Hg 03/15/20 25 Blood pressure diastolic 91 mm Hg 025 Heart Rate 75 /min 03/15/2025 Respiratory Rate 16 /min 03/15/2025 Height 5 ft 9 in in 03/15/2025 Weight 248 lbs 03/15/2025 BMI 36.62 kg/m2 03/15/2025 Post procedure VS=BP ,P , R Discharged home per ambulatory, no acute distress. 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 The specific risks of this procedure including pain, bleeding, [...] is agreeable to proceeding at this time. The patient was placed in the prone position on the fluoroscopy table and standard ASA monitors were applied. The back was prepped and draped in the usual sterile fashion with chlorhexidine 2%/IPA 70%. The c-arm was obliqued and tilted to identify the left lumbar 4-5 neural foramen and a 23 gauge 3.5 inch spinal needle was inserted under fluoroscopic guidance towards the junction of the inferior endplate and superior articular process until the superior articular process was contacted. A lateral view was taken and the needle tip was advanced into the posterior aspect of the neuroforamen. The subcutaneous structures were anesthetized with 3 mL of 1% Preservative-Free lidocaine during needle placement. An AP view was taken and after negative aspiration for blood, air or CSF, 2 mLs of Omnipaque 240 contrast dye was injected under live fluoroscopy for an epidurogram showing good spread within the epidural space and along the selected nerve root (except in cases of contrast allergy). No intravascular or intrathecal spread was noted. A solution of 10 mg of Preservative-Free Dexamethasone (10 mg/mL), plus 3 mL of 0.25% Preservative-Free bupivacaine was mixed and after negative aspiration 2 mL of this solution was slowly injected into the epidural space. The c-arm was obliqued and tilted to identify the right lumbar 4-5 neural foramen and a 23 gauge 3.5 inch spinal needle was inserted under fluoroscopic guidance towards the junction of the inferior endplate and superior articular process until the superior articular process was contacted. A lateral view was taken and the needle tip was advanced into the posterior aspect of the neuroforamen. The subcutaneous structures were anesthetized with 3 mL of 1% Preservative-Free lidocaine during needle placement. An AP view was taken and after negative aspiration for blood, air or CSF, 2 mLs of Omnipaque 240 contrast dye was injected under live fluoroscopy for an epidurogram showing good spread within the epidural space and along the selected nerve root (except in cases of contrast allergy). No intravascular or intrathecal spread was noted. From the solution of 10 mg of Preservative-Free Dexamethasone (10 mg/mL), plus 3 mL of 0.25% Preservative-Free bupivacaine, 2 mL of this solution was slowly injected into the epidural space. The needles were removed, the skin was cleaned and band-aids were placed over the puncture sites. The patient tolerated the procedure well, was able to ambulate without difficulty and was monitored for 20 minutes. Patient reports a 95% reduction in typical pain immediately postprocedure. The patient remained hemodynamically and neurologically stable. No apparent complications were observed. Postoperative instructions were reviewed with the patient. The patient was then discharged home in good condition with a jitney driver. X-ray time: 22 seconds Progress Notes * Examination Category Sub-Category Detail [...] patient's typical axial low back pain. Barry's, [place]'s and Gaenslen's are positive on the left. [...] foraminal stenosis Assessment and Follow-up: Follow-up Plan documen halie:: Yes MIPS Quality 2020: MIPS Documented:: Compliant
--- OUTSIDE RECORDS SUMMARY | 2025-03-21 05:40 | XMS_ITS ---
Author Organization [facility] Address [address] [facility] [place] [address] Care Team Providers Care Percolator Operator Name Role Phone TRENTON CARMEN DO Primary Care Provider Adele vailable Jerman Pacheco Unavailable [phone] MD KARL, BENITO Unavailable Unavailable REASON FOR VISIT pt would like a call back Encounters Encounter Location Date Provider Diagnosis [facility] [address] [facility] [address] 03/21/2025 Jerman Pacheco PLAN OF TREATMENT Next Appt Details Provider Name:Jerman west, 04/08/2025 07:45:00 AM, [address] [facility] [place], [phone],
--- OUTSIDE RECORDS SUMMARY | 2025-03-22 07:22 | XMS_ITS ---
Author Organization [facility] Address [address] [place] [address] [place] [address] Care Team Providers Care Felting Machine Operator Helper Name Role Phone TRENTON CARMEN DO Primary Care Provider Adele phillilanabor Pacheco Jerman Unavailable [phone] MD KARL, BENITO Unavailable Unavailable REASON FOR VISIT Refills MEDICATIONS Medication SIG (Take, Route, Fr equency, Duration) Notes Start Date End Date Status methylPREDNISolone 4 MG as directed Orally Active Encounters Encounter Location Date Provider Diagnosis [facility] [address] [place] [phone] 03/22/2025 Jerman Tara Sacroiliitis, not elsewhere classified M46.1 ASSESSMENTS Encounter Date Diagnosis Assessment Notes Treatment Notes Treatment Clinical Notes Section Notes 03/22/2025 Sacroiliitis, not elsewhere classified (ICD-10 - M46.1) PLAN OF TREATMENT Medication Medication Name Sig Start Date Stop Date Notes methylPREDNISolone 4 MG as directed Orally Next Appt Details Provider Name:Jerman Salazar Sebastian west, 04/08/2025 07:45:00 AM, [address] [place] [address], [phone],
--- OUTSIDE RECORDS SUMMARY | 2025-03-29 02:30 | XMS_ITS ---
Author Organization [facility] Address [address] [place] [address] [place] [address] Care Team Providers Care Digital Publishing Specialist Name Role Phone KERMIT FAZALRY Primary Care Provider Adele pollockJerman Aggarwal Unavailable [phone] MD KARL, BENITO Unavailable Unavailable ALLERGIES Allergen (clinical drug ingredient) Drug/Non Drug Allergy documented on EMR Reaction Allergy Type Onset Date Status fenofibrate Fenofibrate swelling Drug Allergy Act abundio Substance with 1-eeyhokc-0-methylgluta ryl-coenzyme A reductase inhibitor mechanism of action (substance) Statins swelling Drug Allergy Active REASON FOR VISIT Follow Up, Left > Right Low Back Pain MEDICATIONS Medication SIG (Take, Route, Fr equency, Duration) Notes Start Date End Date Status Gabapentin 100 MG 1 capsule Oral Three a day Active Naproxen 500 MG take 1 tablet by annalee th twice daily as needed for 15 days. 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 The patient denies tobacco, alcohol, or illicit drug abuse. 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 The risks of this procedure including pain, bleeding, infection, insomnia, hyperglycemia, hair loss, muscle atrophy, skin depigmentation, weight gain, fluid retention, adrenal suppression, immunosuppression , osteoporosis resulting in fractures, avascular necrosis of the hip, cataracts, bleeding gastric ulcer, worsening pain and failure to relieve pain were discussed and the patient is agreeable to proceeding at this time. 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 Patient verbalized understanding and agrees with current plan. 03/29/2025 Other The above-named patient was evaluated in [...] PLAN OF TREATMENT Treatment Notes Assessment Notes Sacroiliitis, not elsewhere classified s chedule a left sacroiliac joint injection. The risks of this procedure including pain, bleeding, infection, insomnia, hyperglycemia, hair loss, muscle atrophy, skin depigmentation, weight gain, fluid retention, adrenal suppression, immunosuppression, osteoporosis resulting in fractures, avascular necrosis of the hip, cataracts, bleeding gastric ulcer, worsening pain and failure to relieve pain were discussed and the patient is agreeable to proceeding at this time. Pain in right knee The patient was inst ructed to notify the office after imaging has been obtained so it can be reviewed and treatment plan formulated moving forward. Patient verbalized understanding and agrees with current plan. Other The above-named patient was evaluated in [...] with Patient and Medical Decision Makin minutes Pending Test Test Name Order Date xray right knee 03/29/2025 Next Appt Details Follow Up: left SIJ steroid injection, Reason: Provider Name:Jerman Martin west, 04/08/2025 07:45:00 AM, [address] [place], [phone], Progress Notes * Examination Category Sub-Category Detail [...] patient's typical axial low back pain. Barry's, [place]'s and Gaenslen's are positive on the left. [...]
--- NOTE | ~2025-04-05 | XR_ITS ---
Examination: XR knee RT min 4V Clinical History: MEDIAL pain in right knee Comparison: None Technique: 4 views right knee Findings/impression: 1. No fracture, dislocation, or effusion right knee. 2. Small patellofemoral compartment marginal osteophytes. 3. Mild chondrocalcinosis. 4. No other significant degenerative changes. Reviewed, dictated and finalized at location R.
--- OUTSIDE RECORDS SUMMARY | 2025-04-05 12:50 | XMS_ITS | Patient Health Record ---
Author Organization [facility] Address [address] [place] [address] [place] [address] Care Team Providers Care Chief Maintenance Supervisor Name Role Phone TRENTON CARMEN DO Primary Care Provider Jerman Dominguez Unavailable [phone] MD KARL, BENITO Unavailable Unavailable ALLERGIES Allergen (clinical drug ingredient) Drug/Non Drug Allergy documented on EMR Reaction Allergy Type Onset Date Status fenofibrate Fenofibrate swelling Drug Allergy Act abundio Substance with 7-trhtmwy-7-methylgluta ryl-coenzyme A reductase inhibitor mechanism of action (substance) Statins swelling Drug Allergy Active REASON FOR REFERRAL No Information MEDICATIONS Medication SIG (Take, Route, Fr equency, [...] methylPREDNISolone 4 MG as directed Orally Active PROBLEMS Problem Type ICD Code Onset Dates Problem Status W/U Status Risk SNOMED Code Notes Problem Fear of injections and transfusions (F40.231) Active confirmed Fear of medical treatment (881796084) Problem Chronic pain syndrome (G89.4) Active confirmed Chronic jyothi n syndrome (854861002) Problem Sacroiliitis, not elsewhere classified (M46.1) Active confirmed Solitary sacroiliitis (167840393) Problem Spondylosis without myelopathy or radiculopathy, 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 confirmed Lumbosacral spondylosis without myelopathy (68879142) Problem Spondylosis without myelopathy or radiculopathy, lumbosacral region (M47.817) Active confirmed Lumbosacral spondylosis without myelopathy (disorder) (36263360) Problem Radiculopathy, lumbar region (M54.16) Active confirmed Lumbar radiculopathy (349625464) Problem Radiculopathy, lumbosacral region (M54.17) Active confirmed Lumbosacral radiculopathy (3400664) Problem Osseous stenosis of neural canal of lumbar region (M99.33) Active confirmed Spinal stenosis of lumbar region (18117479) Problem Lumbar radiculopathy (M54.16) Active confirmed Lumbar radiculopathy (168687346) Problem DDD (degenerative disc disease), lumbar (M51.36) Active confirmed Degenerative disc disease (83261404) VITAL SIGNS Heart Rate 65 /min 03/29/2025 Respiratory Rate 18 /min 03/29/2025 Oximetry 97 % 02/12/2025 Post Op Vitals: BP 126/85, HR 74, RR 16, Spo2 97% Discharged to home with self, ambulatory without assistance at baseline, and in no acute distress. Blood pressure diastolic 92 mm Hg 03/29/2025 Height 5 ft 9 in in 03/29/2025 Blood pressure systolic 134 mm Hg 03/29/2025 Weight 247 lbs 03/29/2025 BMI 36.47 kg/m2 03/29/2025 Encounters Encounter Location Date Provider Diagnosis [facility] [address] [place] [address] 04/09/2024 Jerman Stynowick Sacroiliitis, not elsewhere classified M46.1 [facility] [address] [place] [address] 04/30/2024 Jerman Stynowick Lumbar radiculopathy M54.16 ; Sacroiliitis, not elsewhere classified M46.1 ; Osseous stenosis of neural canal of lumbar region M99.33 ; DDD (degenerative disc disease), lumbar M51.36 ; Chronic pain syndrome G89.4 and Fear of injections and transfusions F40.231 [facility] [address] [place] [address] 12/04/2024 Jerman Stynowick Lumbar radiculopathy M54.16 ; Sacroiliitis, not elsewhere classified M46.1 ; Osseous stenosis of neural canal of lumbar region M99.33 ; DDD (degenerative disc disease), lumbar M51.36 ; Chronic pain syndrome G89.4 and Fear of injections and transfusions F40.231 [facility] [address] [facility] [place] [address] 12/17/2024 Jerman Stynowick Sacroiliitis, not elsewhere classified M46.1 [facility] [address] [facility] [place] [address] 12/24/2024 Jerman Stynowick [facility] [address] [facility] [place] [address] 12/26/2024 Jerman Stynowick Sacroiliitis, not elsewhere classified M46.1 ; Spondylosis without myelopathy or radiculopathy, lumbar region M47.816 ; Lumbar radiculopathy M54.16 and Spondylosis without myelopathy or radiculopathy, lumbosacral region M47.817 [facility] [address] [facility] [place] [address] 01/04/2025 Jerman Stynowick Spondylosis without myelopathy or radiculopathy, lumbar region M47.816 and Spondylosis without myelopathy or radiculopathy, lumbosacral region M47.817 [facility] [address] [facility] [place] [address] 01/14/2025 Jerman Stynowick Spondylosis without myelopathy or radiculopathy, lumbar region M47.816 ; Spondylosis without myelopathy or radiculopathy, lumbosacral region M47.817 ; Lumbar radiculopathy M54.16 and Sacroiliitis, not elsewhere classified M46.1 [facility] [address] [facility] [place] [address] 01/21/2025 Jerman Stynowick Spondylosis without myelopathy or radiculopathy, lumbar region M47.816 and Spondylosis without myelopathy or radiculopathy, lumbosacral region M47.817 [facility] [address] [facility] [place] [address] 01/29/2025 Jerman Stynowick Spondylosis without myelopathy or radiculopathy, lumbar region M47.816 ; Spondylosis without myelopathy or radiculopathy, lumbosacral region M47.817 ; Lumbar radiculopathy M54.16 ; Sacroiliitis, not elsewhere classified M46.1 and Fear of injections and transfusions F40.231 [facility] [address] [place] [address] 02/12/2025 Jerman Stynowick Spondylosis without myelopathy or radiculopathy, lumbar region M47.816 and Spondylosis without myelopathy or radiculopathy, lumbosacral region M47.817 [facility] [address] [place] [address] 02/13/2025 Jerman Stynowick [facility] [address] [place] [address], [place] [address] 03/05/2025 Jerman Stynowick Spondylosis without myelopathy or radiculopathy, lumbar region M47.816 ; Lumbar radiculopathy M54.16 ; Spondylosis without myelopathy or radiculopathy, lumbosacral region M47.817 ; Sacroiliitis, not elsewhere classified M46.1 and 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 anti-inflammatories (NSAID) Z79.1 [facility] [address] [place] [address], [place] [address] 03/15/2025 Jerman Stynowick Radiculopathy, lumba r region M54.16 ; Radiculopathy, lumbosacral region M54.17 and Osseous stenosis of neural canal of lumbar region M99.33 [facility] [address] [place] [address] [place] [address] 03/21/2025 Jerman Stynowick [facility] [address] [place] [address], [place] [address] 03/22/2025 Jerman Stynowick Sacroiliitis, not elsewhere classified M46.1 [facility] [address] [place] [address] [place] [address] 03/29/2025 Jerman Stynowick Radiculopathy, lumba r region M54.16 ; Sacroiliitis, not elsewhere classified M46.1 ; Radiculopathy, lumbosacral region M54.17 ; Osseous stenosis of neural canal of lumbar region M99.33 and Pain in right knee M25.561 ASSESSMENTS Encounter Date Diagnosis Assessment Notes Treatment Notes Treatment Clinical Notes Section Notes 03/22/2025 Sacroiliitis, not elsewhere classified (ICD-10 - M46.1) 03/29/2025 Radiculopathy, lumbar region (ICD-10 - M54.16) [...] is agreeable to proceeding at this time. 03/15/2025 Radiculopathy, lumbosacral region (ICD-10 - M54.17) 03/15/2025 Radiculopathy, lumbar region (ICD-10 - M54.16) 03/05/2025 Lumbar radiculopathy (ICD-10 - M54.16) Schedule [...] is agreeable to proceeding at this time. 04/09/2024 Sacroiliitis, not elsewhere classified (ICD-10 - M46.1) 03/05/2025 Spondylosis without myelopathy or radiculopathy, lumbar region (ICD-10 - M47.816) 02/12/2025 Spondylosis without myelopathy or radiculopathy, lumbosacral region (ICD-10 - M47.817) 02/12/2025 Spondylosis without myelopathy or radiculopathy, lumbar region (ICD-10 - M47.816) 04/30/2024 Lumbar radiculopathy (ICD-10 - M54.16) The side effects of NSAIDs including gastritis, gastrointestinal upset, ulcers, serious, even fatal, stomach and intestinal bleeding, perforation of the stomach or intestines, hypertension, increased risk for myocardial infarction, CVA, increased risk of bleeding/hemorrhage , especially when taken in conjunction with anticoagulants, fluid retention, peripheral edema, renal insufficiency/failu re, hepatic injury/failure, shortness of breath and anaphylaxis resulting in respiratory arrest/ were discussed and the patient expressed an understanding of the above. 01/29/2025 Spondylosis without myelopathy or radiculopathy, lumbosacral region (ICD-10 - M47.817) 01/29/2025 Spondylosis without myelopathy or radiculopathy, lumbar region (ICD-10 - M47.816) Schedule a bilateral L3-5 radiofrequency ablation for a more durable treatment of the patient's facet-generated low back pain originating from the L4-5 and L5-S1 facet joints. The risks of this procedure including pain, bleeding, infection, nerve damage, spinal cord injury, paralysis, total spinal anesthesia resulting in cardiopulmonary arrest/, respiratory distress requiring intubation, neuritis after radiofrequency ablation, hyperglycemia, insomnia, hair loss, muscle atrophy, skin depigmentation, weight gain, fluid retention, adrenal suppression, osteoporosis resulting in fractures, avascular necrosis of the hip, cataracts, bleeding gastric ulcer, worsening pain and failure to relieve pain were discussed and the patient is agreeable to proceeding at this time. 01/21/2025 Spondylosis without myelopathy or radiculopathy, lumbosacral region (ICD-10 - M47.817) 01/21/2025 Spondylosis without myelopathy or radiculopathy, lumbar region (ICD-10 - M47.816) 12/04/2024 Lumbar radiculopathy (ICD-10 - M54.16) 01/04/2025 Spondylosis without myelopathy or radiculopathy, lumbosacral region (ICD-10 - M47.817) 12/17/2024 Sacroiliitis, not elsewhere classified (ICD-10 - M46.1) 12/26/2024 Sacroiliitis, not elsewhere classified (ICD-10 - M46.1) 12/26/2024 Spondylosis without myelopathy or radiculopathy, lumbar region (ICD-10 - M47.816) schedule a bilateral L3-5 medial branch nerve block as a diagnostic and potentially therapeutic endeavor to isolate the source of the patient's facet-generated low back pain originating from the L4-5 and L5-S1 facet joints and to ultimately perform radiofrequency ablation for more durable pain relief. The risks of this procedure including pain, bleeding, infection, nerve damage, spinal cord injury, paralysis, total spinal anesthesia resulting in cardiopulmonary arrest/, respiratory distress requiring intubation, neuritis after radiofrequency ablation, hyperglycemia, insomnia, hair loss, muscle atrophy, skin depigmentation, weight gain, fluid retention, adrenal suppression, osteoporosis resulting in fractures, avascular necrosis of the hip, cataracts, bleeding gastric ulcer, worsening pain and failure to relieve pain were discussed and the patient is agreeable to proceeding at this time. 01/04/2025 Spondylosis without myelopathy or radiculopathy, lumbar region (ICD-10 - M47.816) 01/14/2025 Spondylosis without myelopathy or radiculopathy, lumbosacral region (ICD-10 - M47.817) 01/14/2025 Spondylosis without myelopathy or radiculopathy, lumbar region (ICD-10 - M47.816) schedule a bilateral L3-5 medial branch nerve block as a diagnostic and potentially therapeutic endeavor to isolate the source of the patient's facet-generated low back pain originating from the L4-5 and L5-S1 facet joints and to ultimately perform radiofrequency ablation for more durable pain relief. The risks of this procedure including pain, bleeding, infection, nerve damage, spinal cord injury, paralysis, total spinal anesthesia resulting in cardiopulmonary arrest/, respiratory distress requiring intubation, neuritis after radiofrequency ablation, hyperglycemia, insomnia, hair loss, muscle atrophy, skin depigmentation, weight gain, fluid retention, adrenal suppression, osteoporosis resulting in fractures, avascular necrosis of the hip, cataracts, bleeding gastric ulcer, worsening pain and failure to relieve pain were discussed and the patient is agreeable to proceeding at this time. 03/29/2025 Radiculopathy, lumbosacral region (ICD-10 - M54.17) 03/15/2025 Osseous stenosis of neural canal of lumbar region (ICD-10 - M99.33) 03/05/2025 Spondylosis without myelopathy or radiculopathy, lumbosacral region (ICD-10 - M47.817) 01/29/2025 Lumbar radiculopathy (ICD-10 - M54.16) 01/14/2025 Lumbar radiculopathy (ICD-10 - M54.16) 12/26/2024 Lumbar radiculopathy (ICD-10 - M54.16) 12/04/2024 Osseous stenosis of neural canal of lumbar region (ICD-10 - M99.33) 12/04/2024 Sacroiliitis, not elsewhere classified (ICD-10 - M46.1) [...] is agreeable to proceeding at this time. 04/30/2024 Osseous stenosis of neural canal of lumbar region (ICD-10 - M99.33) 04/30/2024 Sacroiliitis, not elsewhere classified (ICD-10 - M46.1) Patient recently underwent left SI joint steroid injection last time, 04/09/24 and reports 95% relief of his severe left SI joint pain, allowing this procedure. He currently denies a need for any injections or interventions at this time. He would like to return to the office as needed for a follow-up and reevaluation should his pain return or become worse. 01/14/2025 Sacroiliitis, not elsewhere classified (ICD-10 - M46.1) 12/26/2024 Spondylosis without myelopathy or radiculopathy, lumbosacral region (ICD-10 - M47.817) 12/04/2024 DDD (degenerative disc disease), lumbar (ICD-10 - M51.36) 01/29/2025 Sacroiliitis, not elsewhere classified (ICD-10 - M46.1) 04/30/2024 DDD (degenerative disc disease), lumbar (ICD-10 - M51.36) 03/05/2025 Sacroiliitis, not elsewhere classified (ICD-10 - M46.1) 03/29/2025 Osseous stenosis of neural canal of lumbar region (ICD-10 - M99.33) 01/29/2025 Fear of injections and transfusions (ICD-10 - F40.231) The patient was given written instructions explaining the above and was informed that they would need to come with a mule driver after taking this medication due to the risk of impairment. 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 Patient verbalized understanding. 03/29/2025 Pain in right knee (ICD-10 - M25.561) The patient was instructed to notify the office after imaging has been obtained so it can be reviewed and treatment plan formulated moving forward. Patient verbalized understanding and agrees with current plan. 12/04/2024 Fear of injections and transfusions (ICD-10 - F40.231) 04/30/2024 Fear of injections and transfusions (ICD-10 - F40.231) 04/30/2024 Other The above-named patient was evaluated in [...] with Patient and Medical Decision Makin minutes 12/04/2024 Other The above-named patient was evaluated in [...] with Patient and Medical Decision Makin minutes 12/26/2024 Other The above-named patient was evaluated in [...] with Patient and Medical Decision Makin minutes 01/14/2025 Other The above-named patient was evaluated in [...] with Patient and Medical Decision Makin minutes 01/29/2025 Other The above-named patient was evaluated in [...] with Patient and Medical Decision Makin minutes 02/12/2025 Other The patient voiced understanding of the treatment plan and all questions were addressed. Obtain informed consent: Bilateral Lumbar 3-5 Radiofrequency Ablation under fluoroscopy. Monitor pulse, blood pressure and SaO2 before, after and as needed during procedure. Verify if the patient is currently taking blood thinner. Verify patients is not currently on antibiotics for infection. Patient may drive home. CARE PLAN: Knowledge deficit: Will verbalize understanding of the proposed procedure, including risk of electrical burn, complications and benefits of the procedure? Will the patient exhibit understanding of the discharge instructions? Safety: The potential for injury related to surgery was assessed; Fire risk score determined, test completed if applicable. Risk for injury related to wrong patient, site, procedure. TIME OUT for safety of patient and includes patient name, , procedure site, side, level, allergies, blood thinners, antibiotics, surgical counts, consents correct and signed etc. Risk for infection: Implements aseptic technique, protects from cross-contamination , performs skin preparations. Pain/Discomfort: Patient verbalizes acceptable level of pain relief prior to discharge and the ability to engage in desired activity. I HAVE REVIEWED THE PATIENT'S MEDICATION LIST AND HAVE RECONCILED THE ABOVE MEDICATIONS. PATIENT GOALS AND SAFETY CONCERNS HAVE BEEN ADDRESSED. RN initials CR 03/05/2025 Other The above-named patient was evaluated [...] with Patient and Medical Decision Makin minutes 03/15/2025 Other 03/29/2025 Other The above-named patient was evaluated [...] Medical Decision Makin minutes PLAN OF TREATMENT Pending Test Test Name Order Date xray right knee 03/29/2025 Next Appt Details Provider Name:Jerman Salazar [place], 04/08/2025 07:45:00 AM, [address] [place], [address], Insurance Providers Payer Name Payer Address Payer Phone Subscriber Number Group Number Insured Name Patient Relationship to Insured Coverage Start Date Coverage End Date [employer] [address] [address] [place] [address] [id number] DORIS GONZALEZ Self - patient is the insured MEDICAL (GENERAL) HISTORY Medical History History ICD Code Diverticulitis Surgical History Surgery Date(Month/Year) Cholecystectomy
--- OUTSIDE RECORDS SUMMARY | 2025-04-05 12:51 | XMS_ITS | Clinical Summary ---
Author Organization [facility] Address [address] [place] [address] Care Team Providers Care Foam Fabricator Name Role Phone Javed Chapa DO Primary Care Provider + Allergies Active Allergy Reactions Criticality Noted Date Comments Fenofibrate Swelling Medium 04/16/2021 Lips and tongue swell. Statins Swelling,Unknown 10/01/2022 Unsure of which statin he is allergic to Medications omeprazole EC 20 MG tablet Take 1 tablet (20 mg total) by mouth daily. Active gabapentin (NEURONTIN) 100 MG capsuleIndication s:Spinal stenosis of lumbar region, unspecified whether neurogenic claudication present TAKE 1 CAPSULE(100 MG) BY MOUTH THREE TIMES DAILY NEEDED FOR PAIN. CAN CAUSE DROWSINESS 90 capsule 4 Active naproxen (NAPROSYN) 500 MG tabletIndications :Spinal stenosis of lumbar region, unspecified whether neurogenic claudication present TAKE 1 TABLET(500 MG) BY MOUTH TWICE DAILY NEEDED 60 tablet 1 5 Active Active Problems Problem Noted Date Diagnosed Date Lumbar spondylosis 08/17/2024 Sciatica 08/17/2024 Resolved Problems Problem Noted Date Diagnosed Date Resolved Date Diverticulitis of colon with perforation 02/13/2024 02/13/2024 Hepatic steatosis 02/13/2024 02/13/2024 Encounters Date Type Department Care Team Description 03/15/2025 Scan [facility] Scanned, [facility] 02/12/2025 Scan [facility] Scanned, [facility] 01/29/2025 Scan [facility] Scanned, [facility] 01/21/2025 Scan [facility] Scanned, [facility] 01/14/2025 Scan [facility] Scanned, [facility] 01/04/2025 Scan [facility] Scanned, [facility] from Last 3 Months Immunizations Immunization Administration Dates Next Due Fluzone High Dose - >Age 65 (Prefilled Syringe) 03/28/2023,04/16/2021 Influenza (Generic) 04/12/2024,07/21/2012 Influenza Adult (Generic) 04/27/2019,05/01/2018 PFIZER COVID-19 (ORIGINAL FO RMULATION, PURPLE CAP) mRNA, LNP-S, PF, 30 MCG/0.3 ML DOSE 04/04/2021,09/01/2020,07/22/2020 Pneumococcal (Prevnar 13) 04/16/2021 Pneumococcal (Prevnar 20) 02/13/2024 Tdap (Generic) 01/19/2019 Family History Medical History Relation Comments Cancer Mother Breast Diabetes Mother Heart Disease Mother Relation Status Comments Father Mother Alive Social History Tobacco Use Types Packs/Day Years Used Date Smoking Tobacco: Never Smokeless Tobacco: Never Tobacco Cessation:Counseling Given: Not Answered Alcohol Use Standard Drinks/Week Comments Yes 0 (1 standard drink = 0.6 oz pur e alcohol) Occasional, once a month PHQ-2 Answer Date Recorded Patient Health Questionnaire-2 Score 0 08/17/2024 Sex and Gender Information Value Date Recorded Sex Assigned at Male 08/17/2024 2:37 PM BAND [employer]W [employer] Legal Sex Male 11:43 AM CDT Gender Identity Male 08/17/2024 2:37 PM BAND [employer]W [employer] Sexual Orientation Not on file Occupation Industry Job Start Date Job End Date Not on file Not on file Not on file Not on file Last Filed Vital Signs Vital Sign Reading Time Taken Comments Blood Pressure 126/74 08/17/2024 2:37 PM BAND [employer]W [employer] Pulse 74 08/17/2024 2:37 PM [employer]W [employer] Temperature 36.6 C (97.9 F) 08/17/2024 2:37 PM BAND [employer]W [employer] Respiratory Rate 16 08/17/2024 2:37 PM BAND SAW [employer]PER[employer] Oxygen Saturation 97% 08/17/2024 2:37 PM BAND SAW O[employer] Inhaled Oxygen Concentration - - Weight 113.8 kg (250 lb 14.4 oz) 08/17/2024 2:37 PM [employer]AND [employer]W [employer] Height 175.3 cm (5' 9) 08/17/2024 2:37 PM BAND [employer]W [employer] Body Mass Index 37.05 08/17/2024 2:37 PM BAND [employer]W [employer] Plan of Treatment Health Maintenance Due Date Last Done Comments Zoster Vaccines (1 of 2) 12/15/2005 COVID-19 Vaccine ( season) 2025 07/08/2024, 03/28/2023, 04/26/2022, Additional history exists DTaP, Tdap and Td Vaccines (2 - Td or Tdap) 01/19/2029 01/19/2019 RSV Immunization or 60+ Years (1 - 1-dose 75+ series) 12/15/2030 Colorectal Cancer Screening Colonoscopy (10 Years) 10/01/2032 10/01/2022 Hepatitis C Completed 04/23/2021 Pneumococcal Vaccine: 50+ Years Completed 02/13/2024, 04/16/2021 PHQ-2 (Physician [place]) Completed 08/17/2024 Meningococcal B Vaccine Aged Out No l onger eligible based on patient's age to complete this topic Meningococcal Vaccine Aged Out No cristo arslan eligible based on patient's age to complete this topic RSV Immunizations Under 20 Months Aged Out No longer eligible based on patient's age to complete this topic Procedures Procedure Name Priority Date/Time Associated Diagnosis Comments HEPATITIS C ANTIBODY Routine 04/23/2021 7:09 AM CDT Need for hepatitis C screening test from Last 3 Months or Most Recently Relevant to Health Maintenance Results * HEPATITIS C ANTIBODY (04/23/2021 7:09 AM CDT) HEPATITIS C AB NON-REACTI VE NON-REACT AMINTA 04/23/2021 6:28 PM CDT [facility] Comment: ANTIBODIES TO HCV NOT DETECTED. DOES NOT EXCLUDE THE POSSIBILITY OF EXPOSURE TO HCV. 04/23/2021 7:09 AM CDT us Javed Chapa DO LABORATORY Final Re sult [facility] [address] [place] [address], [id number] from Last 3 Months or Most Recently Relevant to Health Maintenance Insurance [employer] Care Teams Foam Fabricator Relationship Specialty Start Date End Date Javed Chapa DO [address] [place] [id number] PCP - General FAMILY PRACTICE 02/27/21
--- OUTSIDE RECORDS SUMMARY | 2025-04-05 12:51 | XMS_ITS | Encounter Summary ---
Author Organization [facility] Address [address] [place] [id number] Care Team Providers Care Splunk Architect Name Role Phone Javed Chapa DO Primary Care Provider + Encounter Details Date Type Department Care Team (Late st Contact Info) Description 09/13/2024 Alitalia Message Enc [facility] Family & Internal Medicine [address] [id number] [place], [facility] Provider CT results Social History Tobacco Use Types Packs/Day Years Used Date Smoking Tobacco: Never Smokeless Tobacco: Never Alcohol Use Standard Drinks/Week Comments Yes 0 (1 standard drink = 0.6 oz pur e alcohol) Occasional, once a month PHQ-2 Answer Date Recorded Patient Health Questionnaire-2 Score 0 08/17/2024 Sex and Gender Information Value Date Recorded Sex Assigned at Male 08/17/2024 2:37 PM ARTIST'S REPRESENTATIVE Legal Sex Male 11:43 AM CDT Gender Identity Male 08/17/2024 2:37 PM ARTIST'S REPRESENTATIVE Sexual Orientation Not on file Occupation Industry Job Start Date Job End Date Not on file Not on file Not on file Not on file documented as of this encounter Plan of Treatment Not on file documented as of this encounter Visit Diagnoses Not on filedocumented in this encounter Additional Health Concerns Assessment Noted Time PHQ-9 Depression Total Score: 0 04/16/20 21 9:14 AM CDT documented as of this encounter Care Teams Splunk Architect Relationship Specialty Start Date End Date Javed Chapa DO [address] [place] [id number] PCP - General FAMILY PRACTICE 02/27/21 documented as of this encounter
--- OUTSIDE RECORDS SUMMARY | 2025-04-05 12:51 | XMS_ITS | Clinical Summary ---
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 This disclosure is being madepursuant to the Care Everywhere program and may not contain all informatio navailable regarding this patient. Last updated 18.[facility] Social History Tobacco Use Types Packs/Day Years Used Date Smoking Tobacco: Never Assessed Sex and Gender Information Value Date Recorded Sex Assigned at Not on file Legal Sex Male 4:34 PM CDT Gender Identity Not on file Sexual Orientation Not on file Last Filed Vital Signs Vital Sign Reading Time Taken Comments Blood Pressure 130/74 10/03/2013 12:35 PM CDT Pulse - - Temperature 36.7 C (98 F) 10/03/2013 12:35 PM CDT Respiratory Rate - - Oxygen Saturation - - Inhaled Oxygen Concentration - - Weight 112 kg (247 lb) 10/03/2013 12:35 PM CDT Height 175.3 cm (5' 9) 10/03/2013 12:35 PM CDT Body Mass Index 36.48 10/03/2013 12:35 PM CDT Plan of Treatment Health Maintenance Due Date Last Done Comments COLOGUARD (AGES 45-75) - COL ON CA SCREENING 1955 COLON MONITORING 1955 COLONOSCOPY - COLON CA SCREENING 1955 CT COLONOGRAPHY - COLON CA SCREENING 1955 Colorectal Cancer Screening 1955 FIT - COLON CA SCREENING 1955 FLEX SIG - COLON CA SCREENING 1955 LIPID TESTING 1955 HEPATITIS C SCREENING 12/11/1973 DTAP/TDAP/TD VACCINES (1 - Tdap) 12/15/1974 PNEUMOCOCCAL VACCINE 50+ (1 of 1 - PCV) 12/15/2005 ZOSTER VACCINE (1 of 2) 12/15/2005 DEPRESSION SCREENING 07/11/2024 COVID-19 VACCINE (1 - 2023-2 5 season) 2025 INFLUENZA VACCINE (#1) 2025 Respiratory Syncytial Virus (RSV) Vaccine Pt: or over 60 yrs (1 - 1-dose 75+ series) 12/15/2030 HEPATITIS B VACCINE Aged Out No longe r eligible based on patient's age to complete this topic HIB VACCINE Aged Out No longer eligi ble based on patient's age to complete this topic HPV VACCINE Aged Out No longer eligi ble based on patient's age to complete this topic MENINGOCOCCAL (Group B) VACC INE SHARED DECISION-MAKING Aged Out No longer eligibl e based on patient's age to complete this topic MENINGOCOCCAL GROUPS A/C/Y/W VACCINE Aged Out No longer eligible b ased on patient's age to complete this topic
--- OUTSIDE RECORDS SUMMARY | 2025-04-05 12:51 | XMS_ITS | Clinical Summary ---
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 Wacnhge-Fbg-Wso Reductase Inhibitors Swelling Medium 10/01/2022 Unsure of which statin he is allergic to Medications omeprazole OTC (PriLOSEC OTC) 20 mg EC tablet Take 1 tablet (20 mg total) by mouth daily Active naproxen (NAPROSYN) 500 mg tablet Take 1 tablet (500 mg total) by mouth 2 (two) times a day as needed 04/07/2023 Active cyclobenzaprine (FLEXERIL) 10 mg tabletIndicatio ns:Upper back pain on left side Take 1 tablet (10 mg total) by mouth 3 (three) times a day as needed for muscle spasms 30 tablet 05/01/2023 Active lidocaine (LIDODERM) 5 %Indications:Up per back pain on left side Place 1 patch on the skin daily Apply to painful area 12 hours per day, remove for 12 hours. 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 Gender Identity Not on file Sexual Orientation Not on file Last Filed Vital Signs Vital Sign Reading Time Taken Comments Blood Pressure 130/70 05/01/2023 5:51 PM CDT Pulse 60 05/01/2023 5:51 PM CDT Temperature 36.3 C (97.4 F) 05/01/2023 5:51 PM CDT Respiratory Rate 18 05/01/2023 5:51 PM CDT Oxygen Saturation 99% 05/01/2023 5:51 PM CDT Inhaled Oxygen Concentration - - Weight 104.3 kg (230 lb) 05/01/2023 5:51 PM CDT Height 175.3 cm (5' 9) 05/01/2023 5:51 PM CDT Body Mass Index 33.97 05/01/2023 5:51 PM CDT Plan of Treatment Health Maintenance Due Date Last Done Comments Colon Cancer Screening-Colonoscopy 1955 Depression Screening 1955 Fall Risk Assessment 1955 Hepatitis C Screening 1955 Prostate Cancer Screening-PSA 1955 Hepatitis B Screening 12/15/1973 Zoster Vaccine (1 of 2) 12/15/2005 Abdominal Aortic Aneurysm (A AA) Screen 12/15/2020 Well Visit 65+ 12/15/2020 Pneumococcal vaccine 65+ (2 of 2 - PCV20 or PCV21) 04/16/2022 04/16/2021 Covid-19 Vaccine (7 - 2024-2 6 season) 2025 03/28/2023, 04/26/2022, 10/17/2021, Additional history exists Influenza Vaccine (#1) 2025 , 04/26/2022, 04/16/2021, Additional history exists DTaP/Tdap/Td Vaccine (2 - Td or Tdap) 01/19/2029 01/19/2019 Insurance [facility] Care Teams Polishing Pad Mounter Relationship Specialty Start Date End Date Javed Chapa DO [address] [place] [id number] PCP - General Family Medicine 05/01/23
== END 2025-04-05 12:47 | disposition home or self-care (01) ==
PROVIDERS: PCP Student in an Organized Health Care Education/Training Program; Visit Provider Anesthesiology
DX: M25.761 Osteophyte, right knee (principal); M11.261 Other chondrocalcinosis, right knee
CPT/HCPCS: 73564